=== PATIENT | male | born 1955 | race Caucasian/White ===

== ENCOUNTER → 2018-06-29 14:14 | Outpatient (CLI) | payer BC, SELFPAY ==
[2018-06-29 14:18] LABS: Microscopic, Urine URINE MICROSCOPIC (MICROSCOPIC)
[2018-06-29 14:39] LABS: Basophils # 0.1 K/mm3 (0-0.2); Basophils % 0.6 % (0.1-2.0); Eosinophils # 0.2 K/mm3 (0.0-0.4); Eosinophils % 1.9 % (0.1-12.0); Hematocrit 42.9 % (42.0-52.0); Hemoglobin 14.6 g/dL (14.1-18.0); Lymphocytes # 2.9 K/mm3 (0.7-4.5); Lymphocytes % 33.4 % (10-50); Mean Corpuscular HGB Conc 33.9 g/dL (31.8-35.4); Mean Corpuscular Hemoglobin 33.1 pg (27.0-31.2); Mean Corpuscular Volume 97.5 fl (80-94); Mean Platelet Volume 7.4 fl (7.4-10.4); Monocytes # 0.3 K/mm3 (0.1-1.0); Monocytes % 3.3 % (1.7-9.3); Neutrophils # 5.2 K/mm3 (1.8-7.8); Neutrophils % 60.7 % (37.0-80.0); Platelet Count 240 K/mm3 (142-424); Red Cell Distribution Width 13.4 % (11.5-17.5); White Blood Count 8.6 K/mm3 (4.8-10.8)
[2018-06-29 15:05] LABS: Appearance,Urine CLEAR (Clear); Bilirubin,Urine Negative (Negative); Blood, Urine 1+ (Negative); Color,Urine YELLOW (Yellow); Glucose,Urine (UA) Negative (Negative); Ketones,Urine Negative (Negative); Leukocyte Esterase,Urine Negative (Negative); Nitrate,Urine Negative (Negative); PH,Urine 5.5 (5.0-8.5); Protein,Urine Negative (Negative); Specific Gravity, Urine >= 1.030 (1.005-1.030); Urobilinogen,Urine 0.2 EU/dl (0.2)
[2018-06-29 15:15] LABS: Bacteria,Urine Trace /lpf; Mucus,Urine 3+ /lpf; WBC,Urine Occasional #/hpf (0-3)
[2018-06-29 15:34] LABS: Anion Gap 15.8 mEq/L (5-15); Blood Urea Nitrogen 10 mg/dL (7-18); Calcium 8.8 mg/dL (8.5-10.1); Carbon Dioxide 23 mmol/L (21.0-32.0); Chloride 104 mmol/L (98-107); Creatinine,Serum 1.05 mg/dL (0.70-1.30); Estimated Glomerular Filt Rate 71 ml/min (>60); GFR (African American) 86 ML/MIN (>60); Glucose 133 mg/dL (74-106); Potassium 3.8 mmoL/L (3.5-5.1); Sodium 139 mmol/L (136-145)
== END ==
PROVIDERS: Visit Provider Surgery
DX: K40.90 Unilateral inguinal hernia, without obstruction or gangrene, not specified as recurrent (principal)
CPT/HCPCS: 36415; 80048; 81001; 85025; 93005

== ENCOUNTER → 2018-12-10 15:18 | Outpatient (CLI) | payer BC, SELFPAY ==
--- NOTE | 2018-12-10 15:22 | CT_ITS ---
PROCEDURE: CT LUNG SCREENING CLINICAL INDICATION: H/O NICOTINE DEPENDENCE Forty pack-year smoking history, asymptomatic for lung cancer COMPARISON: CHW CT CHEST W/ CONTRAST from 09/20/2012 TECHNIQUE: The exam was performed on a GE Light Speed [address] scanner using 2.90 mGy CTDI. A low dose helical CT CHEST was performed on a multi-detector scanner. All CT scans at the facility use one or more dose reduction, viz: automated exposure control, ma/kV adjustment per patient size (including targeted exams where dose is matched to indication, i.e. head), or iterative reconstruction technique. The LDCT was performed in a facility that meets the criteria for the screening program. Data regarding this exam was submitted to ACR which is an approved registry. The order for this exam indicates that it came as a result of a lung cancer screening counseling shard decision-making visit that included all the elements required of such a visit including smoking cessation. The radiologist interpreting this exam meets the CMS criteria for the LDCT lung cancer screening program. The exam is reported using the Lung-RADS classification scale and reported to the ACR registry. NOTE: This study was performed for the specific purposes of lung cancer screening and is not an alternative to diagnostic chest CT. RADIATION DOSE: CTDI vol(CT dose Index-volume) = 2.90mG DLP (Dose Length Product) = 114.38 mGcm FINDINGS: There are severe centrilobular and paraseptal emphysematous changes in the apices greater on the right compared to the left side. These findings have progressed since the previous exam. No suspicious pulmonary nodules are evident. There is a small nodular opacity along posterior aspect of the trachea on the right which has developed since the previous exam but does contain some calcification suggesting a small partially calcified nodule or lymph node. The OTHER FINDINGS: No other pertinent findings evident. IMPRESSION: Lung rads category 2 benign findings. Severe centrilobular and paraseptal emphysematous changes which has progressed since the previous exam Recommend follow-up screening LD CT in 1 year Dictated by: Wally Ogden MD 12/10/2018 15:54 Electronically signed by Wally Ogden MD in [place] 12/10/2018 15:54
== END ==
PROVIDERS: PCP Internal Medicine Adolescent Medicine; Visit Provider Internal Medicine Adolescent Medicine
DX: Z87.891 Personal history of nicotine dependence (principal); Z12.2 Encounter for screening for malignant neoplasm of respiratory organs

== ENCOUNTER → 2019-07-28 11:10 | Outpatient (CLI) | payer BC, SELFPAY ==
--- NOTE | 2019-07-28 11:20 | CT_ITS ---
PROCEDURE: CT ABDOMEN PELVIS WO CON CLINICAL INDICATION: HEMATURIA Painless hematuria COMPARISON: No exams were available for comparison TECHNIQUE: Axial images obtained with sagittal and coronal reformats. All CT scans at the facility use one or more dose reduction, viz: automated exposure control, ma/kV adjustment per patient size (including targeted exams where dose is matched to indication, i.e. head), or iterative reconstruction technique. FINDINGS: LOWER THORAX: No acute finding ABDOMEN & PELVIS: The there is a 1 cm hypodensity in the right hepatic lobe posteriorly segment 7 nonspecific. The spleen, adrenal glands, and pancreas show no acute finding. There is a small calcific density in the uncinate process of the pancreas and 1 in the tail the pancreas. There is a small hiatal hernia. Gallbladder has an unremarkable appearance. No renal or ureteral calculi are evident. There is a 2.6 cm hypodensity in the right kidney posteriorly and inferiorly which may represent a renal cyst and may be confirmed with ultrasound. No hydronephrosis. No intestinal obstruction or free air. There is some thickening of the terminal ileum as well as the ascending and transverse colon with fatty infiltration of the mucosa which may be seen with inflammatory bowel disease. There is diverticulosis of the descending and sigmoid colon. No evidence of diverticulitis. No evidence of appendicitis. There is increased soft tissue density in the right inguinal region which may be due to prior surgery No acute bony anomaly. IMPRESSION: 1. Hypodense lesion of the right kidney at 2.6 cm likely related to a renal cyst. Suggest ultrasound to confirm cystic nature. 2. Fatty infiltration the wall of the terminal ileum as well as the cecum, ascending colon, and proximal transverse colon. This is a nonspecific finding but can be seen with types inflammatory bowel disease 3. Colonic diverticulosis. No evidence of diverticulitis. Dictated by: Wally Ogden MD 07/29/2019 08:40 Electronically signed by Wally Ogden MD in [place] 07/29/2019 08:40
== END ==
PROVIDERS: PCP Internal Medicine Adolescent Medicine; Visit Provider Internal Medicine Adolescent Medicine
DX: R31.9 Hematuria, unspecified (principal)
CPT/HCPCS: 74176

== ENCOUNTER → 2019-08-10 10:29 | Outpatient (CLI) | payer BC, SELFPAY ==
[2019-08-10 12:14] LABS: Coronavirus 19 IgG Antibody Negative (Negative); Coronavirus 19 IgM Antibody Negative (Negative)
== END ==
PROVIDERS: Visit Provider Urology
DX: Z01.818 Encounter for other preprocedural examination (principal); R30.0 Dysuria
CPT/HCPCS: 36415; 86328

== ENCOUNTER 2019-08-11 13:17 | Day surgery (SDC) | payer BC, SELFPAY ==
--- NOTE | 2019-08-09 09:33 | SUR.PREOP ---
08/09/2019 @ 930--PHONE CALL MADE TO PATIENT. PATIENT UNDERSTANDS THAT LAB WORK AND COVID TESTING NEEDS TO BE COMPLETED @ 10 ON 08/10/2019. PATIENT UNDERSTANDS IF LAB WORK AND COVID-19 TESTS ARE NOT COMPLETED BY 12PM ON THAT DATE, THE SURGERY SCHEDULED WILL BE CANCELLED AND RESCHEDULED FOR ANOTHER TIME.
[2019-08-10 11:34] VITALS: BMI 30.4
[2019-08-11 13:31] VITALS: BP 154/93; PULSE 81; RESP 18; TEMP 36.3; O2SAT 96
[2019-08-11 14:10] VITALS: BP 173/92; PULSE 79; RESP 18; TEMP 36.2; O2SAT 95
--- NOTE | 2019-08-11 16:23 | HMH.OPNOTE ---
Date of procedure: 08/11/19 Pre-op Diagnosis:: Gross hematuria Post-op Diagnosis:: Bladder tumor Procedure performed:: Cystoscopy, flexible Surgeon:: Aleks Chicas MD Anesthesia: local Estimated blood loss (mL): 0 Clinical Note:: 64-year-old white male with a recent gross hematuria presents for cystoscopic evaluation. Operative findings:: 2 cm bladder tumor noted above the left ureteral orifice. Operative note:: Patient taken to the operating room after informed consent was obtained. On the stretcher he was prepped and draped in the standard surgical fashion and 2% lidocaine placed into the urethra and clamped for 5 minutes. The flexible cystoscope introduced into the urethral meatus and passed to the prostatic urethra which showed no evidence of any bleeding. There was moderate hyperplasia present. The bladder was entered and examined in a systematic fashion. There was a 2 cm superficial appearing, papillary tumor noted above the left ureteral orifice. No other abnormalities were noted. The scope was retroflexed showing a small median lobe. Scope removed the patient tolerated the procedure well there are no complications. We discussed the findings today and we discussed that TURBT is our next step in treating the bladder tumor. Condition: stable Disposition: same day Specimens:: None Complications:: None
== END 2019-08-11 14:20 | disposition home or self-care (01) ==
LOC: OUTP 13:19
PROVIDERS: PCP Internal Medicine Adolescent Medicine; Visit Provider Urology
PROC: (CPT 52000; principal; 2019-08-11 14:00)
DX: D49.4 Neoplasm of unspecified behavior of bladder; E78.5 Hyperlipidemia, unspecified; Z79.82 Long term (current) use of aspirin; Z79.51 Long term (current) use of inhaled steroids; Z83.3 Family history of diabetes mellitus; Z83.438 Family history of other disorder of lipoprotein metabolism and other lipidemia; Z84.1 Family history of disorders of kidney and ureter; Z80.9 Family history of malignant neoplasm, unspecified; Z72.0 Tobacco use
CPT/HCPCS: 52000

== ENCOUNTER → 2019-08-18 09:44 | Outpatient (CLI) | payer BC, SELFPAY ==
[2019-08-18 14:10] LABS: Coronavirus 19 IgG Antibody Negative (Negative); Coronavirus 19 IgM Antibody Negative (Negative)
== END ==
PROVIDERS: Visit Provider Urology
DX: Z01.818 Encounter for other preprocedural examination (principal)
CPT/HCPCS: 36415; 86328

== ENCOUNTER 2019-08-19 09:12 | Day surgery (SDC) | payer BC, SELFPAY ==
--- NOTE | 2019-08-17 10:07 | SUR.PREOP ---
08/17/2019 @ 1000--PHONE CALL MADE TO PATIENT. PATIENT UNDERSTANDS THAT LAB WORK AND COVID TESTING NEEDS TO BE COMPLETED @ 0930 ON 08/18/2019. PATIENT UNDERSTANDS IF LAB WORK AND COVID-19 TESTS ARE NOT COMPLETED BY 12PM ON THAT DATE, THE SURGERY SCHEDULED WILL BE CANCELLED AND RESCHEDULED FOR ANOTHER TIME.
[2019-08-19] VITALS (16 sets, daily range): BP systolic 131–187; BP diastolic 74–113; PULSE 58–72; RESP 12–20; TEMP 36.5–43; O2SAT 94–96; BMI 28.8
[2019-08-19 10:29] LABS: Basophils # 0.1 K/mm3 (0-0.2); Eosinophils # 0.2 K/mm3 (0.0-0.4); Eosinophils % 2.4 % (0.1-12.0); Hematocrit 46.3 % (42.0-52.0); Hemoglobin 15.2 g/dL (14.1-18.0); Lymphocytes # 2.1 K/mm3 (0.7-4.5); Lymphocytes % 24.6 % (10-50); Mean Corpuscular HGB Conc 32.9 g/dL (31.8-35.4); Mean Corpuscular Hemoglobin 33.8 pg (27.0-31.2); Mean Corpuscular Volume 102.7 fl (80-94); Mean Platelet Volume 9.6 fl (7.4-10.4); Monocytes # 0.2 K/mm3 (0.1-1.0); Monocytes % 2.7 % (1.7-9.3); Neutrophils # 5.8 K/mm3 (1.8-7.8); Neutrophils % 69.3 % (37.0-80.0); Platelet Count 280 K/mm3 (142-424); Red Blood Count 4.51 M/mm3 (4.60-6.20); Red Cell Distribution Width 13.1 % (11.5-17.5); White Blood Count 8.4 K/mm3 (4.8-10.8)
[2019-08-19 10:31] LABS: Chloride 105 mmol/L (98-107); Potassium 4.4 mmoL/L (3.5-5.1); Sodium 139 mmol/L (136-145)
[2019-08-19 10:34] LABS: Blood Urea Nitrogen 12 mg/dl (9-20); Carbon Dioxide 24 mmol/L (22.0-30.0); Creatinine Clearance Estimated 105 mL/min (50-200); Estimated Glomerular Filt Rate 84 ml/min (>60); GFR (African American) 102 ML/MIN (>60); Glucose 112 mg/dl (74-100)
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
--- NOTE | 2019-08-19 13:41 | FL_ITS ---
PROCEDURE: FL CYSTOGRAM NON-VOIDING CLINICAL INDICATION: STENT PLACEMENT IN OR S/P TURBP COMPARISON: No exams were available for comparison FINDINGS: Fluoroscopy time: 65 seconds Two images submitted shows a right ureteral stent in place with the proximal aspect in the region of the renal pelvis and distal aspect in the region of the urinary bladder. IMPRESSION: Status post right stent placement with fluoroscopic guidance Dictated by: Wally Ogden MD 08/19/2019 17:07 Electronically signed by Wally Ogden MD in [place] 08/19/2019 17:07
--- NOTE | 2019-08-19 13:45 | HMH.ANESI ---
[facility] Anesthesia Record Part I Intake, IV Amount: 1,340 Estimated blood loss (mL): 0 Urine output (mL): 0 Blood Pressure: 135/77 SaO2: 94 Pulse Rate: 72 Respiratory Rate: 12 Temperature: 97.7 F Patient is:: Awake, Stable Stable to PACU at:: 13:40
--- NOTE | 2019-08-19 14:22 | PC.NURSE ---
1408-medicated per MAR for bladder pressure/urge to void w/Dilaudid 0.5mg IVP, bp remains elevated, will continue to monitor, otherwise vss 1418-ENRIQUE Dominguez at bedside, pt's BP remains elevated after being medicated for pain, pt reports pressure is easing a little, pt attempted to void at bedside w/assistance of ANI Garcia and ENRIQUE Dominguez-pt unable to void per urinal, assisted pt back to bed, will continue to monitor 1420-pt's bp remains elevated at 156/113-ENRIQUE Dominguez ordered to give Labetolol 10mg IVP xonce, will continue to monitor
--- NOTE | 2019-08-19 14:34 | PC.NURSE ---
1428-pt reports pain is easing a little, sitting up in bed drinking apple juice and ice chips w/out difficulty, pt's bp improving w/Labetolol, vss, detailed report called to Yovany,RNpt stable 1431-pt transported to post op via stretcher w/[place] rails up, vss, pt stable
--- NOTE | 2019-08-19 15:17 | SUR.PHASEII ---
Pt been in bathroom for close to 30 minutes trying to [address] Dr[address] Chicas notified per Paulina Rahman RN and said to put in Murray with 10cc balloon. Waiting for Pt to come out of BR.
--- NOTE | 2019-08-19 16:58 | P.PN_ITS ---
[facility] Anesthesia Record Part II Discharge Time: 14:30 Destination: Surgical Day Care (OP Surgery) PACU nurse assessment reviewed?: Yes Patient Condition:: Good Anesthesia Complications:: None Swallowing reflex intact?: Yes Cyanosis?: No Blood Pressure: 149/97 Pulse Rate: 66 Temperature: 97.8 F Mental Status: Alert & Oriented Pain level:: 3 Nausea and/or vomitting:: None Intake, IV Amount: 0
--- NOTE | 2019-08-19 18:39 | HMH.OPNOTE ---
Date of procedure: 08/19/19 Pre-op Diagnosis:: 2 cm bladder tumor Post-op Diagnosis:: 2 cm bladder tumor and distal ureteral extension of tumor Procedure performed:: TURBT of 2 cm bladder tumor, left ureteroscopy with ureteral biopsy and laser fulguration of ureteral tumor Surgeon:: Aleks Chicas MD HEAD SETTER:: Honorio Cruz Anesthesia: GETA Estimated blood loss (mL): 5 Clinical Note:: 64-year-old white male with history of gross hematuria noted to have a 2 cm bladder tumor on recent cystoscopy. After resection of the bladder tumor today he was noted to be extending into the distal ureter. Ureteroscopy showed no evidence of more proximal tumor. Ureteral biopsy and laser fulguration of the tumor with stent placement performed Operative findings:: 2 cm bladder tumor with calcifications, bladder tumor extended into the distal left ureter. Operative note:: Patient taken to the operating room after informed consent was obtained. Was placed on the operating table in the supine position and general anesthesia administered. Preoperative antibiotics administered. He was then placed into the dorsal lithotomy position and prepped and draped in the standard surgical fashion. 22 Salvadorean cystoscope passed into the urethra and into the bladder without difficulty. Again of note was a 2 cm bladder tumor noted over the left trigone. The left ureteral orifice was not visible underneath the tumor. The tumor was noted to have some calcifications peripherally. The cystoscope removed and our 26 Salvadorean resectoscope sheath passed into the urethra with use of the obturator. The obturator then removed and the resectoscope passed through the sheath and the tumor resected down to the base. The tumor appeared to be coming right from the ureteral orifice and ureteral orifice was resected with the base of the tumor. The bladder tumor was then irrigated out and sent off as a specimen. Superficial and deep specimens were sent. The cystoscope then removed and our semirigid ureteroscope passed into the bladder and into the left ureter. There was papillary finding right at the distal ureter but not more proximally. The scope was passed up to the proximal ureter and no other suspicious findings were noted. The ureteroscope was removed and the cystoscope was replaced and biopsy forceps were used to biopsy the papillary tissue from the distal ureter. This was sent off as a specimen. Cystoscope then removed and the ureteroscope was replaced and passed into the left ureter. The 200 nm laser fiber passed through the ureteroscope and with the settings at 20 W the papillary tumor at the distal ureter was fulgurated. All visible tumor was treated. We then removed the laser and a guidewire then used to pass into the ureter and up into the renal pelvis. We did have a little trouble finding the true lumen after the fulguration but under fluoroscopy we were able to verify that we were in the correct position by injecting some contrast through the ureteral catheter and then replacing the guidewire. A 6 x 26 Salvadorean stent was then passed over the guidewire and the guidewire removed. The string was removed as well. The ureteral tumor was sent off as a separate specimen. The bladder drained and the scope removed. Patient tolerated procedure well. Condition: stable Disposition: PACU Specimens:: Superficial and deep bladder specimens. Ureteral biopsy is a separate specimen Complications:: None
== END 2019-08-19 16:26 | disposition home or self-care (01) ==
LOC: OR 09:13
PROVIDERS: PCP Internal Medicine Adolescent Medicine; Visit Provider Urology
PROC: 0TBB8ZZ Excision of Bladder, Via Natural or Artificial Opening Endoscopic (ICD-10-PCS; CPT 52500; principal; 2019-08-19 10:30)
DX: D30.3 Benign neoplasm of bladder (principal); D09.19 Carcinoma in situ of other urinary organs; Z79.82 Long term (current) use of aspirin; Z79.899 Other long term (current) drug therapy; E78.5 Hyperlipidemia, unspecified; Z87.19 Personal history of other diseases of the digestive system; Z72.0 Tobacco use; Z82.49 Family history of ischemic heart disease and other diseases of the circulatory system; Z83.438 Family history of other disorder of lipoprotein metabolism and other lipidemia; Z80.9 Family history of malignant neoplasm, unspecified
CPT/HCPCS: 52500; 52234; 74430; 80048; 85025; 96374; C1769; C2617; J2405; J2710

== ENCOUNTER → 2019-08-22 10:09 | Outpatient (CLI) | payer BC, SELFPAY ==
--- NOTE | 2019-08-22 10:18 | XR_ITS ---
PROCEDURE: XR KUB CLINICAL INDICATION: stent placement Follow-up stent placement COMPARISON: CT ABDOMEN PELVIS WO CON from 07/28/2019 FL CYSTOGRAM NON-VOIDING from 08/19/2019 FINDINGS: Left ureteral stent is present in satisfactory position with the proximal aspect overlying the region of the left renal pelvis and distal aspect overlying urinary bladder. There are multiple pelvic calcifications consistent with phleboliths. IMPRESSION: Left ureteral stent in place. Dictated by: Wally Ogden MD 08/22/2019 11:04 Electronically signed by Wally Ogden MD in [place] 08/22/2019 11:04
== END ==
PROVIDERS: PCP Internal Medicine Adolescent Medicine; Visit Provider Urology
DX: Z96.0 Presence of urogenital implants (principal)
CPT/HCPCS: 74018

== ENCOUNTER → 2019-10-21 14:46 | Outpatient (CLI) | payer BC, SELFPAY ==
[2019-10-21 17:08] LABS: Coronavirus 19 IgG Antibody Negative (Negative); Coronavirus 19 IgM Antibody Negative (Negative)
== END ==
PROVIDERS: Visit Provider Urology
DX: Z01.818 Encounter for other preprocedural examination (principal)
CPT/HCPCS: 36415; 86328

== ENCOUNTER 2019-10-24 07:29 | Day surgery (SDC) | payer BC, SELFPAY ==
[2019-10-20 10:41] VITALS: BMI 28.8
[2019-10-24] VITALS (13 sets, daily range): BP systolic 118–168; BP diastolic 77–92; PULSE 56–75; RESP 12–18; TEMP 36.2–43; O2SAT 90–96
--- NOTE | 2019-10-24 09:22 | HMH.ANESCL ---
[facility] Anesthesia Checklist - Patient Identification Patient Identification: Arm Band, Verbal (Name & ) - Structural Data Admitted From: Home Planned Operative Procedure/s: Cystoscopy, ureteroscopy Consent for Planned Operative Procedure(s) Verified: Yes Verified Documents: Surgical Consent, History and Physical - NPO Status Verified Time NPO: 00:00 - Chart Verification Results Verified: CBC, BMP, UA - Additional verifications Anesthesia Reactions: No Hx Blood Transfusions: No Blood Transfusion Reaction: No - Airway Assessment C-Spine Mobility Assessed: Yes TMJ Mobility Assessed: Yes Dentition: Good Dentition (Bridges) - Neurological Assessment Level of Consciousness: Awake, Alert, Appropriate, Follows Commands Hx Seizures: No Numbness or tingling in extremities: No - Anesthesia Plan Anesthesia Risk discussed: Yes Anesthesia Plan: Verified ASA Class: III Anesthesia Type: General [facility] History I have reviewed the patient's past medical history: Yes Medical History: Reports:: Chronic Obstructive Pulmonary Disease (COPD), Hyperlipidemia Denies:: Cancer, Diabetes Mellitus Type 1, Diabetes Mellitus Type 2, Internal Pacemaker, MRSA, Seizures *Have you ever received a pneumonia vaccine?: Yes *Have you received a flu vaccine this season?: Yes Other Medical History: Denies: Blood Transfusion Reaction Anesthesia experience/problems:: No prior complications Laterality Cases: Bilateral: Other Other Surgeries: Yes: Cancer Surgery, Colonoscopy, Hernia Repair, Other. No: Pacemaker Amputation: No Fractures: Yes (jaw) - *Social History Last grade of school completed: Advanced degree Smoking Status: Former smoker Tobacco Type: cigarettes # Packs/Day (cigarettes): 1 #Yrs smoked (if former smoker): 40 Alcohol Intake: never Substance Use Type: denies use *Occupational Status:: employed Housing: house Household Members: spouse *Travel in the last 8 weeks: None Family Hx:: Cancer, Coronary Artery Disease, Kidney Disease
--- NOTE | 2019-10-24 10:31 | P.PN_ITS ---
[facility] Anesthesia Record Part I Intake, IV Amount: 1,200 Estimated blood loss (mL): 0 Urine output (mL): 0 Blood Pressure: 149/86 SaO2: 92 Pulse Rate: 60 Respiratory Rate: 12 Temperature: 97.9 F Patient is:: Awake, Stable Stable to PACU at:: 10:30
--- NOTE | 2019-10-24 11:42 | PC.NURSE ---
Addendum entered by Joey Cardoso RN 10/24/19 11:43: Original Note: Pt voided a moderate amt of clear urine
--- NOTE | 2019-10-24 16:30 | HMH.ANESII ---
[facility] Anesthesia Record Part II Discharge Time: 11:03 Destination: Surgical Day Care (OP Surgery) PACU nurse assessment reviewed?: Yes Patient Condition:: Good Anesthesia Complications:: None Swallowing reflex intact?: Yes Cyanosis?: No Blood Pressure: 147/91 Pulse Rate: 66 Temperature: 97.9 F Mental Status: Alert & Oriented Pain level:: 0 Nausea and/or vomitting:: None Intake, IV Amount: 0
--- NOTE | 2019-10-24 16:51 | HMH.OPNOTE ---
Date of procedure: 10/24/19 Pre-op Diagnosis:: History of bladder cancer and distal ureteral tumor Post-op Diagnosis:: No recurrent tumor noted. Procedure performed:: Cystoscopy with left ureteroscopy Surgeon:: Aleks Chicas MD CAR STEREO INSTALLER:: Vikash Lundberg Anesthesia: GETA Estimated blood loss (mL): 0 Clinical Note:: 64-year-old white male returns for surveillance cystoscopy and left ureteroscopy. Operative findings:: No evidence of recurrent tumor in the bladder or in the left ureter or renal pelvis. Operative note:: Patient taken to the operating room after informed consent was obtained. He was placed on the operating table in the supine position and general anesthesia administered. Preoperative antibiotics and sequential compression devices placed. He was then placed into the dorsal lithotomy position prepped draped in the standard surgical fashion. 22 Gabo passed into the urethra and passed into the bladder without difficulty. The bladder was examined in a systematic fashion. There is no evidence of recurrent bladder tumor. The ureteral orifices in their normal anatomic position and clear eflux of urine noted from each. The left ureteral orifice was a little narrower than normal and a guidewire was passed through the left ureteral orifice into the renal pelvis. A flexible ureteroscope was then passed over the guidewire and the guidewire removed. The ureteroscope was passed up into the renal pelvis and each of the calyces were examined and there is no evidence of any tumor. The ureter was examined in its entirety on the way out and there is no evidence of any recurrent tumor including the distal ureter. The scope removed and the patient tolerated the procedure well. He was discharged to recovery in stable condition. Condition: stable Disposition: PACU Specimens:: None Complications:: None
== END 2019-10-24 11:43 | disposition home or self-care (01) ==
LOC: OR 07:30
PROVIDERS: PCP Internal Medicine Adolescent Medicine; Visit Provider Urology
PROC: 0TJ98ZZ Inspection of Ureter, Via Natural or Artificial Opening Endoscopic (ICD-10-PCS; CPT 52351; principal; 2019-10-24 09:00)
DX: Z08 Encounter for follow-up examination after completed treatment for malignant neoplasm (principal); Z85.51 Personal history of malignant neoplasm of bladder; Z87.448 Personal history of other diseases of urinary system; J44.9 Chronic obstructive pulmonary disease, unspecified; E78.5 Hyperlipidemia, unspecified; Z87.891 Personal history of nicotine dependence; Z80.9 Family history of malignant neoplasm, unspecified; Z84.1 Family history of disorders of kidney and ureter; Z82.49 Family history of ischemic heart disease and other diseases of the circulatory system; Z79.899 Other long term (current) drug therapy
CPT/HCPCS: 52351; 96374

== ENCOUNTER → 2019-12-10 09:10 | Outpatient (CLI) | payer BC, SELFPAY ==
[2019-12-10 10:24] LABS: Coronavirus 19 IgG Antibody Negative (Negative); Coronavirus 19 IgM Antibody Negative (Negative)
== END ==
PROVIDERS: Visit Provider Internal Medicine Gastroenterology
DX: Z01.89 Encounter for other specified special examinations (principal); Z12.11 Encounter for screening for malignant neoplasm of colon
CPT/HCPCS: 36415; 86328

== ENCOUNTER 2019-12-12 13:26 | Day surgery (SDC) | payer BC, SELFPAY ==
[2019-12-06 14:37] VITALS: BMI 28.8
[2019-12-12] VITALS (7 sets, daily range): BP systolic 130–168; BP diastolic 70–100; PULSE 59–69; RESP 18; TEMP 36.7; O2SAT 94–99
--- NOTE | 2019-12-12 15:54 | HMH.ANESCL ---
[facility] Anesthesia Checklist - Structural Data Admitted From: Home Planned Operative Procedure/s: colonoscopy Consent for Planned Operative Procedure(s) Verified: Yes - Additional verifications Anesthesia Reactions: No Hx Blood Transfusions: No Blood Transfusion Reaction: No - Airway Assessment C-Spine Mobility Assessed: Yes TMJ Mobility Assessed: Yes Dentition: Good Dentition - Neurological Assessment Level of Consciousness: Awake, Alert, Appropriate - Anesthesia Plan Anesthesia Risk discussed: Yes Anesthesia Plan: Verified ASA Class: II Anesthesia Type: MAC [facility] History I have reviewed the patient's past medical history: Yes Medical History: Reports:: Chronic Obstructive Pulmonary Disease (COPD), Hyperlipidemia, Hypertension Denies:: Cancer, Diabetes Mellitus Type 1, Diabetes Mellitus Type 2, Internal Pacemaker, MRSA, Seizures *Have you ever received a pneumonia vaccine?: Yes *Have you received a flu vaccine this season?: Yes Other Medical History: Denies: Blood Transfusion Reaction Anesthesia experience/problems:: none Laterality Cases: Bilateral: Other Other Surgeries: Yes: No Previous Surgery, Cancer Surgery, Colonoscopy, Hernia Repair, Other. No: Pacemaker Amputation: No Fractures: Yes (jaw) - *Social History Last grade of school completed: Advanced degree Smoking Status: Former smoker Tobacco Type: cigarettes # Packs/Day (cigarettes): 1 #Yrs smoked (if former smoker): 40 Alcohol Intake: never Substance Use Type: denies use *Occupational Status:: employed Housing: house Household Members: spouse *Travel in the last 8 weeks: None Family Hx:: Cancer, Coronary Artery Disease, Kidney Disease
--- NOTE | 2019-12-12 16:02 | HMH.PROC ---
[facility] Procedure Note Procedure Note:: Colonoscopy Procedure Report: Colonoscopy with cold snare polypectomy Endoscopist: Sacha Rodriguez II, MD Referring physician: Wayne Vazquez M.D. Date of Procedure: December 12, 2019 Equipment: Olympus 180 variable stiffness pediatric colonoscope Sedation: MAC sedation Indication: Mr. Hdz is a 64-year-old gentleman who has had advanced adenomatous polyps (11 tubular adenomas removed in October 2015). He has had prior hemorrhoidectomy in 1992. His father had colon polyps. His last colonoscopy with ga was in January 2017 and he had 7 polyps (tubular adenomas x7) which were removed. The patient reports no abdominal pain, weight loss, change in his bowel habits or family history of colon cancer. Procedure: Prior to the procedure, a history and physical exam was performed, and patient's medications and allergies were reviewed. The risks, benefits and alternatives of the sedation and procedure were discussed with the patient. All questions were answered and informed consent was obtained. The patient was brought to the procedure room. Patient identification and proposed procedure were verified by the physician and the nurse. The patient was placed in a left lateral decubitus position and the scope was passed under direct vision. Throughout the procedure, the patient's blood pressure, pulse, and oxygen saturations were monitored continuously. The colonoscopy was accomplished without difficulty. The patient tolerated the procedure well. Findings: On digital rectal examination there was normal rectal tone. There were no external hemorrhoids. The prostate was 2+, mildly firm but symmetric without nodules. The colonoscope was introduced through the anal canal to the rectum and advanced to the cecum. The ileocecal valve and appendiceal orifice were identified. The scope was advanced a short distance into the ileum which appeared grossly normal. The scope was then withdrawn into the colon. There were a total of 3 colon polyps (cecum x2 (3 and 6 mm) and ascending x1 (5 mm)) which were removed via cold snare polypectomy. There were a few scattered diverticuli throughout the descending and sigmoid colon (LEFT colon). The rectum itself was normal. Upon retroflexion within the rectum there were grade 1-2 internal hemorrhoids. There was evidence of fibrosis from prior hemorrhoidectomy. The preparation was excellent throughout with Iota Preparation Score of 9. The cecal time was 12 minutes. Impression: 1. Diminutive colon polyps x3 2. Mild left-sided diverticulosis 3. Grade 1-2 internal hemorrhoids Plan: I will follow-up the polyp histology and recommend repeat screening/surveillance colonoscopy again in 3 to 5 years based upon the pathology. I would encourage bulk fiber supplementation on a maintenance basis.
== END 2019-12-12 16:50 | disposition home or self-care (01) ==
LOC: OUTP 13:28
PROVIDERS: PCP Internal Medicine Adolescent Medicine; Visit Provider Internal Medicine Gastroenterology
PROC: 0DJD8ZZ Inspection of Lower Intestinal Tract, Via Natural or Artificial Opening Endoscopic (ICD-10-PCS; CPT 45378; principal; 2019-12-12 14:30)
DX: Z12.11 Encounter for screening for malignant neoplasm of colon (principal); K63.5 Polyp of colon; K57.30 Diverticulosis of large intestine without perforation or abscess without bleeding; K64.0 First degree hemorrhoids; Z86.010 Personal history of colon polyps; Z83.71 Family history of colonic polyps; I10 Essential (primary) hypertension; E78.5 Hyperlipidemia, unspecified; J44.9 Chronic obstructive pulmonary disease, unspecified; Z87.891 Personal history of nicotine dependence; Z80.9 Family history of malignant neoplasm, unspecified; Z82.49 Family history of ischemic heart disease and other diseases of the circulatory system; Z84.1 Family history of disorders of kidney and ureter; Z84.89 Family history of other specified conditions
CPT/HCPCS: 45385

== ENCOUNTER → 2020-02-07 09:56 | Outpatient (POV) | payer BC, SELFPAY | PROVIDERS: Visit Provider Dermatology | DX: Z00.00 Encounter for general adult medical examination without abnormal findings (principal) ==

== ENCOUNTER → 2020-02-18 10:00 | Outpatient (CLI) | payer BC, SELFPAY ==
[2020-02-18 10:22] LABS: Basophils # 0.1 K/mm3 (0-0.2); Eosinophils # 0.2 K/mm3 (0.0-0.4); Eosinophils % 2.4 % (0.1-12.0); Hematocrit 47.7 % (42.0-52.0); Hemoglobin 15.6 g/dL (14.1-18.0); Lymphocytes # 2.6 K/mm3 (0.7-4.5); Lymphocytes % 31.4 % (10-50); Mean Corpuscular HGB Conc 32.7 g/dL (31.8-35.4); Mean Corpuscular Hemoglobin 32.8 pg (27.0-31.2); Mean Corpuscular Volume 100.1 fl (80-94); Mean Platelet Volume 8.3 fl (7.4-10.4); Monocytes # 0.5 K/mm3 (0.1-1.0); Monocytes % 5.8 % (1.7-9.3); Neutrophils % 59.4 % (37.0-80.0); Platelet Count 268 K/mm3 (142-424); Red Blood Count 4.77 M/mm3 (4.60-6.20); Red Cell Distribution Width 14.2 % (11.5-17.5); White Blood Count 8.4 K/mm3 (4.8-10.8)
[2020-02-18 11:33] LABS: Chloride 105 mmol/L (98-107)
[2020-02-18 11:34] LABS: Potassium 4.5 mmoL/L (3.5-5.1); Sodium 138 mmol/L (136-145)
[2020-02-18 11:37] LABS: Anion Gap 11.5 mEq/L (5-15); Blood Urea Nitrogen 11 mg/dl (9-20); Calcium 9.4 mg/dl (8.4-10.2); Carbon Dioxide 26 mmol/L (22.0-30.0); Estimated Glomerular Filt Rate 84 ml/min (>60); GFR (African American) 102 ML/MIN (>60); Glucose 108 mg/dl (74-100)
[2020-02-18 12:45] LABS: Coronavirus 19 IgG Antibody Negative (Negative); Coronavirus 19 IgM Antibody Negative (Negative)
== END ==
PROVIDERS: Visit Provider Urology
DX: C67.9 Malignant neoplasm of bladder, unspecified (principal)
CPT/HCPCS: 36415; 80048; 85025; 86328

== ENCOUNTER 2020-02-20 07:32 | Day surgery (SDC) | payer BC, SELFPAY ==
[2020-02-17 11:13] VITALS: BMI 29.5
[2020-02-20] VITALS (11 sets, daily range): BP systolic 97–148; BP diastolic 59–99; PULSE 68–84; RESP 12–20; TEMP 36.2–36.6; O2SAT 93–95
--- NOTE | 2020-02-20 10:57 | HMH.ANESCL ---
[facility] Anesthesia Checklist - Patient Identification Patient Identification: Arm Band - Structural Data Admitted From: Home Planned Operative Procedure/s: cysoscopy, left ureteroscopy Consent for Planned Operative Procedure(s) Verified: Yes Verified Documents: Surgical Consent, History and Physical - NPO Status Verified Time NPO: 00:00 - Additional verifications Anesthesia Reactions: No Hx Blood Transfusions: No Blood Transfusion Reaction: No - Airway Assessment C-Spine Mobility Assessed: Yes (mp2) TMJ Mobility Assessed: Yes Dentition: Good Dentition - Neurological Assessment Level of Consciousness: Awake, Alert - Anesthesia Plan Anesthesia Risk discussed: Yes Anesthesia Plan: Verified ASA Class: III Anesthesia Type: General [facility] History I have reviewed the patient's past medical history: Yes Medical History: Reports:: Cancer, Chronic Obstructive Pulmonary Disease (COPD) Denies:: Diabetes Mellitus Type 1, Diabetes Mellitus Type 2, Internal Pacemaker, MRSA, Seizures *Have you ever received a pneumonia vaccine?: Yes *Have you received a flu vaccine this season?: Yes Other Medical History: Denies: Blood Transfusion Reaction Anesthesia experience/problems:: nac Laterality Cases: Bilateral: Other Other Surgeries: Yes: Cancer Surgery, Colonoscopy, Hernia Repair, Other. No: Pacemaker Amputation: No Fractures: Yes (jaw) - *Social History Last grade of school completed: Advanced degree Smoking Status: Current some day smoker Tobacco Type: cigarettes # Packs/Day (cigarettes): 1 #Yrs smoked (if former smoker): 40 Alcohol Intake: current Alcohol Intake Frequency:: a few times a month Substance Use Type: denies use *Occupational Status:: employed Housing: house Household Members: spouse *Travel in the last 8 weeks: None Family Hx:: Cancer, Coronary Artery Disease, Kidney Disease
--- NOTE | 2020-02-20 12:17 | P.PN_ITS ---
[facility] Anesthesia Record Part I Intake, IV Amount: 450 Estimated blood loss (mL): 5 Urine output (mL): 0 Blood Products used (#): none Blood Pressure: 145/80 SaO2: 93 Pulse Rate: 80 Respiratory Rate: 20 Temperature: 97.8 F Patient is:: Awake, Stable Stable to PACU at:: 12:16
--- NOTE | 2020-02-20 16:52 | P.OP_ITS ---
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 Returns today for his 3-month surveillance cystoscopy and ureteroscopy. He denies any interval hematuria. He does continue to smoke on occasion but has decreased his smoking significantly by report. Operative findings:: No evidence of recurrent bladder or ureteral tumors. Operative note:: Patient taken to the operating room after informed consent was obtained. He was placed on the operating table in the supine position and general anesthesia administered. Preoperative antibiotic was given. He was then placed into the dorsal lithotomy position and prepped and draped in the standard surgical fashion. A 21 [place]an scope passed into the urethra and easily into the bladder. The bladder was examined in a systematic fashion. There is no evidence of recurrent bladder tumors, mucosal normalities, trabeculation, diverticula or cellule formation. Right ureteral orifice in its normal anatomic position and of normal caliber. Left ureteral orifice was a little higher on the trigone in more oval in shape due to previous resection of the distal orifice. Guidewire was passed into the left ureteral orifice and the cystoscope removed. Flexible ureteroscope was then passed over the guidewire and into the distal ureter. The guidewire was removed and the scope passed proximally into the left renal pelvis. The left renal pelvis was examined in its entirety as well as the calyces. There is no evidence of transitional cell carcinoma. The ureter was examined as the scope was removed and there is no evidence of any transitional cell tumors in the ureter. Scope removed. Patient tolerated procedure well no complications. Urojet was placed into the urethra and he was discharged to the recovery in stable condition. Condition: stable Disposition: PACU Specimens:: None Complications:: None
--- NOTE | 2020-02-20 20:59 | P.PN_ITS ---
[facility] Anesthesia Record Part II Discharge Time: 12:44 Destination: Surgical Day Care (OP Surgery) PACU nurse assessment reviewed?: Yes Patient Condition:: Good Anesthesia Complications:: None Swallowing reflex intact?: Yes Cyanosis?: No Blood Pressure: 113/59 Pulse Rate: 69 Temperature: 97.5 F Mental Status: Alert & Oriented Pain level:: 0 Nausea and/or vomitting:: None Intake, IV Amount: 0
--- NOTE | 2020-02-21 08:04 | P.PN_ITS ---
[facility] Anesthesia Record Part II Discharge Time: 12:46 Destination: Surgical Day Care (OP Surgery) PACU nurse assessment reviewed?: Yes Patient Condition:: Good Anesthesia Complications:: None Swallowing reflex intact?: Yes Cyanosis?: No Blood Pressure: 138/99 Pulse Rate: 84 Temperature: 97.5 F Mental Status: Alert & Oriented Pain level:: 0 Nausea and/or vomitting:: None Intake, IV Amount: 35
[2020-02-21 08:05] VITALS: BP 138/99; PULSE 84; TEMP 36.4
== END 2020-02-20 13:25 | disposition home or self-care (01) ==
LOC: OR 07:33
PROVIDERS: PCP Internal Medicine Adolescent Medicine; Visit Provider Urology
PROC: 0TJB8ZZ Inspection of Bladder, Via Natural or Artificial Opening Endoscopic (ICD-10-PCS; CPT 52000; principal; 2020-02-20 09:00)
DX: Z08 Encounter for follow-up examination after completed treatment for malignant neoplasm (principal); Z85.51 Personal history of malignant neoplasm of bladder; Z85.54 Personal history of malignant neoplasm of ureter; Z90.6 Acquired absence of other parts of urinary tract; J44.9 Chronic obstructive pulmonary disease, unspecified; Z72.0 Tobacco use; I10 Essential (primary) hypertension
CPT/HCPCS: 52351; 96374; J2405

== ENCOUNTER → 2020-02-23 09:09 | Outpatient (CLI) | payer BC, SELFPAY ==
--- NOTE | 2020-02-23 09:12 | XR_ITS ---
PROCEDURE: XR SHOULDER LT MIN 2V CLINICAL INDICATION: Left shoulder pain COMPARISON: No exams were available for comparison FINDINGS: The clavicle is intact. There is minor degenerate change of the AC joint. The humeral head and glenoid appear intact. No soft tissue calcifications IMPRESSION: Minor degenerative changes AC joint otherwise negative left shoulder Dictated by: Dr. Kodak Posada MD 02/23/2020 14:56 Dr. Kodak Posada MD in [place] 02/23/2020 14:56
== END ==
PROVIDERS: PCP Internal Medicine Adolescent Medicine; Visit Provider Orthopaedic Surgery
DX: M25.512 Pain in left shoulder (principal)
CPT/HCPCS: 73030

== ENCOUNTER → 2020-05-26 08:56 | Outpatient (CLI) | payer BC, SELFPAY ==
--- NOTE | 2020-05-26 09:07 | MR_ITS ---
PROCEDURE: MR ANGIO HEAD WO CON CLINICAL INDICATION: RT EYE DROOP Pt states he noticed his right eye drooping a few days ago. COMPARISON: No exams were available for comparison TECHNIQUE: 3D [id number] images are obtained with multi slab reformats. FINDINGS: No aneurysm, AVM, or major intracranial occlusive process evident. 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 No midline shift or hydrocephalus. There is some asymmetry in the occipital horns of the lateral ventricles left more prominent than the right which is of questionable clinical significance. IMPRESSION: No aneurysm AVM or major occlusive process apparent. 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 Dictated by: Wally Ogden MD 05/29/2020 09:42 Wally Ogden MD in [place] 05/29/2020 09:42
== END ==
PROVIDERS: PCP Internal Medicine Adolescent Medicine; Visit Provider Internal Medicine Adolescent Medicine
DX: R29.810 Facial weakness (principal)
CPT/HCPCS: 70544

== ENCOUNTER → 2020-06-22 14:37 | Outpatient (CLI) | payer BC, SELFPAY ==
[2020-06-22 15:55] LABS: Coronavirus 19 IgG Antibody Positive (Negative); Coronavirus 19 IgM Antibody Negative (Negative)
== END ==
PROVIDERS: Visit Provider Urology
DX: Z01.818 Encounter for other preprocedural examination (principal); Z20.822 Contact with and (suspected) exposure to COVID-19; C67.9 Malignant neoplasm of bladder, unspecified
CPT/HCPCS: 36415; 86328

== ENCOUNTER 2020-06-25 07:23 | Day surgery (SDC) | payer BC, SELFPAY ==
[2020-06-25] VITALS (9 sets, daily range): BP systolic 131–178; BP diastolic 76–105; PULSE 62–95; RESP 16–20; TEMP 36.3–37.4; O2SAT 93–97; BMI 29.5
--- NOTE | 2020-06-25 08:32 | HMH.ANESCL ---
[facility] Anesthesia Checklist - Patient Identification Patient Identification: Arm Band - Structural Data Admitted From: Home Planned Operative Procedure/s: Cystoscopy with Left Ureteroscopy Consent for Planned Operative Procedure(s) Verified: Yes Verified Documents: Surgical Consent, History and Physical - NPO Status Verified Time NPO: 00:00 - Additional verifications Anesthesia Reactions: No Hx Blood Transfusions: No Blood Transfusion Reaction: No - Airway Assessment C-Spine Mobility Assessed: Yes (mp2) TMJ Mobility Assessed: Yes Dentition: Good Dentition - Neurological Assessment Level of Consciousness: Awake, Alert - Anesthesia Plan Anesthesia Risk discussed: Yes Anesthesia Plan: Verified ASA Class: III Anesthesia Type: General [facility] History I have reviewed the patient's past medical history: Yes Medical History: Reports:: Cancer (bladder), Chronic Obstructive Pulmonary Disease (COPD), Hyperlipidemia, Hypertension Denies:: Diabetes Mellitus Type 1, Diabetes Mellitus Type 2, Internal Pacemaker, MRSA, Seizures *Have you ever received a pneumonia vaccine?: No *Have you received a flu vaccine this season?: Yes Other Medical History: Denies: Blood Transfusion Reaction Anesthesia experience/problems:: nac Laterality Cases: Bilateral: Other Other Surgeries: Yes: Cancer Surgery, Colonoscopy, Hernia Repair, Other. No: Pacemaker Amputation: No Fractures: Yes (jaw) - *Social History Last grade of school completed: Some college Smoking Status: Current every day smoker Tobacco Type: cigarettes # Packs/Day (cigarettes): 1 #Yrs smoked (if former smoker): 40 Alcohol Intake: never Alcohol Intake Frequency:: a few times a month Substance Use Type: denies use *Occupational Status:: employed Housing: house Household Members: spouse *Travel in the last 8 weeks: None Family Hx:: No significant family history
--- NOTE | 2020-06-25 10:18 | HMH.ANESI ---
[facility] Anesthesia Record Part I Intake, IV Amount: 900 Estimated blood loss (mL): 0 Urine output (mL): 0 Blood Pressure: 178/105 SaO2: 93 Pulse Rate: 95 Respiratory Rate: 16 Temperature: 99.4 F Patient is:: Drowsy, Stable Stable to PACU at:: 10:15
--- NOTE | 2020-06-25 10:29 | P.OP_ITS ---
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 Couple of small polyps noted today. Procedure performed:: Cystoscopy with biopsy x2 and left ureteroscopy Surgeon:: Aleks Chicas MD PROPERTY INSURANCE CLAIMS EXAMINER:: Honorio Cruz Anesthesia: GETA Estimated blood loss (mL): 2 Clinical Note:: Patient is a 65-year-old white male who underwent transurethral resection of bladder tumor over the left trigone and laser fulguration of distal left ureteral tumor in September 2019. He returns today for surveillance cystoscopy and ureteroscopy. He denies any gross hematuria. Operative findings:: Small 1 to 2 mm papillary lesion at the bladder base just to the right of midline as well as a small 1 to 2 mm polypoid lesion at the bladder neck at the 3 o'clock position. Both were biopsied and the underlying tissue fulgurated. Left ureteroscopy within normal limits. Operative note:: Patient taken to the operating room after informed consent was obtained. He was placed on the operating table in the supine position and general anesthesia administered. Preoperative antibiotics and sequential compression devices placed. Was then placed into the dorsal lithotomy position and prepped and draped in the standard surgical fashion. The 22 Gabo passed into the urethra and to the prostatic urethra which showed some moderate hyperplasia. The bladder was entered without difficulty and the bladder examined in a systematic fashion. A small 1 to 2 mm polypoid lesion noted in the bladder base just to the right of midline that is suspicious. Another 1 to 2 mm polypoid lesion at the bladder neck at the 3 o'clock position was noted. The right ureteral orifices normal anatomic position. The left ureteral orifice shows an open configuration and not a flap-like normal configuration due to previous resection and laser fulguration. Clear efflux of urine was noted from each orifice. The a biopsy forceps was then placed onto the cystoscope and the midline lesion was biopsied as well as the lesion at the 3 o'clock position. The Bugbee electrode was used to fulgurate the base of the areas. A little bleeding was noted from the prostatic urethra due to instrumentation and this was fulgurated as well. The cystoscope then removed and the semirigid ureteroscope then placed in the distal ureter was examined and there is no evidence of recurrent tumors. The scope removed patient tolerated procedure well no complications. Condition: stable Disposition: PACU Specimens:: Bladder biopsies Complications:: None
== END 2020-06-25 11:16 | disposition home or self-care (01) ==
LOC: OR 07:25
PROVIDERS: PCP Internal Medicine Adolescent Medicine; Visit Provider Urology
PROC: 0TJB8ZZ Inspection of Bladder, Via Natural or Artificial Opening Endoscopic (ICD-10-PCS; CPT 52000; principal; 2020-06-25 09:00)
DX: D41.4 Neoplasm of uncertain behavior of bladder (principal); Z85.51 Personal history of malignant neoplasm of bladder; Z85.54 Personal history of malignant neoplasm of ureter; J44.9 Chronic obstructive pulmonary disease, unspecified; E78.5 Hyperlipidemia, unspecified; I10 Essential (primary) hypertension; Z72.0 Tobacco use; Z79.899 Other long term (current) drug therapy
CPT/HCPCS: 52204; 96374; J2405

== ENCOUNTER → 2020-08-10 15:18 | Outpatient (CLI) | payer BC, SELFPAY ==
--- NOTE | 2020-08-10 15:21 | CT_ITS ---
PROCEDURE: CT LUNG SCREENING CLINICAL INDICATION: H/O NICOTINE DEPENDENCE Current smoker 25.5 pack year smoking history Copd Hx bladder cancer Prior on pacs COMPARISON: CT CT LUNG SCREENING from 12/10/2018 TECHNIQUE: The exam was performed on a GE Light Speed [address] scanner using 2.90 mGy CTDI. A low dose helical CT CHEST was performed on a multi-detector scanner. All CT scans at the facility use one or more dose reduction, viz: automated exposure control, ma/kV adjustment per patient size (including targeted exams where dose is matched to indication, i.e. head), or iterative reconstruction technique. The LDCT was performed in a facility that meets the criteria for the screening program. Data regarding this exam was submitted to ACR which is an approved registry. The order for this exam indicates that it came as a result of a lung cancer screening counseling shard decision-making visit that included all the elements required of such a visit including smoking cessation. The radiologist interpreting this exam meets the CMS criteria for the LDCT lung cancer screening program. The exam is reported using the Lung-RADS classification scale and reported to the ACR registry. NOTE: This study was performed for the specific purposes of lung cancer screening and is not an alternative to diagnostic chest CT. RADIATION DOSE: CTDI vol(CT dose Index-volume) = 2.90mG DLP (Dose Length Product) = 111.51 mGcm FINDINGS: Severe centrilobular and paraseptal emphysematous changes with bullous changes in the right apex with scattered areas of scarring. No suspicious nodules evident. There are few scattered small mediastinal lymph nodes. Coronary artery calcification is present. No mediastinal or hilar mass. OTHER FINDINGS: No other pertinent findings evident. IMPRESSION: Lung-RADS Category 1 Negative Follow-up: Continue annual screening with LDCT in 12 months Dictated by: Wally Ogden MD 08/20/2020 14:49 Wally Ogden MD in [place] 08/20/2020 14:49
== END ==
PROVIDERS: PCP Internal Medicine Adolescent Medicine; Visit Provider Internal Medicine Adolescent Medicine
DX: Z87.891 Personal history of nicotine dependence (principal); Z12.2 Encounter for screening for malignant neoplasm of respiratory organs
CPT/HCPCS: 71271

== ENCOUNTER → 2020-10-26 13:31 | Outpatient (CLI) | payer BC, SELFPAY | PROVIDERS: Visit Provider Urology | DX: Z01.812 Encounter for preprocedural laboratory examination (principal); C67.9 Malignant neoplasm of bladder, unspecified; Z20.822 Contact with and (suspected) exposure to COVID-19 | CPT/HCPCS: U0003 ==

== ENCOUNTER 2020-10-29 10:56 | Day surgery (SDC) | payer BC, SELFPAY ==
[2020-10-24 10:49] VITALS: BMI 29.5
[2020-10-29] VITALS (10 sets, daily range): BP systolic 100–149; BP diastolic 60–95; PULSE 50–72; RESP 12–18; TEMP 36.1–36.7; O2SAT 91–100
--- NOTE | 2020-10-29 14:39 | HMH.ANESCL ---
[facility] Anesthesia Checklist - Patient Identification Patient Identification: Arm Band, Verbal (Name & ) - Structural Data Admitted From: Home Planned Operative Procedure/s: cysto Consent for Planned Operative Procedure(s) Verified: Yes Verified Documents: Surgical Consent, History and Physical - Additional verifications Patient : No Anesthesia Reactions: No Hx Blood Transfusions: No Blood Transfusion Reaction: No Previous Colonoscopy: Yes - Airway Assessment C-Spine Mobility Assessed: Yes TMJ Mobility Assessed: Yes Dentition: Good Dentition - Neurological Assessment Level of Consciousness: Awake, Alert, Appropriate Hx Seizures: No Numbness or tingling in extremities: No - Anesthesia Plan Anesthesia Risk discussed: Yes Anesthesia Plan: Verified ASA Class: III Anesthesia Type: General [facility] History I have reviewed the patient's past medical history: Yes Medical History: Reports:: Cancer (bladder), Chronic Obstructive Pulmonary Disease (COPD), Hyperlipidemia, Hypertension Denies:: Diabetes Mellitus Type 1, Diabetes Mellitus Type 2, Internal Pacemaker, MRSA, Seizures *Have you ever received a pneumonia vaccine?: No *Have you received a flu vaccine this season?: Yes Other Medical History: Denies: Blood Transfusion Reaction Anesthesia experience/problems:: none Laterality Cases: Bilateral: Other Other Surgeries: Yes: No Previous Surgery, Cancer Surgery, Colonoscopy, Hernia Repair, Other. No: Pacemaker Amputation: No Fractures: Yes (jaw) - *Social History Last grade of school completed: Advanced degree Smoking Status: Current every day smoker Tobacco Type: cigarettes # Packs/Day (cigarettes): 1 #Yrs smoked (if former smoker): 40 Alcohol Intake: never Alcohol Intake Frequency:: a few times a month Substance Use Type: denies use *Occupational Status:: employed Housing: house Household Members: spouse *Travel in the last 8 weeks: Inside the [facility] Family Hx:: No significant family history
--- NOTE | 2020-10-29 14:41 | P.PN_ITS ---
[facility] Anesthesia Record Part I Intake, IV Amount: 600 Estimated blood loss (mL): 10 Urine output (mL): 0 Blood Products used (#): none Blood Pressure: 100/60 SaO2: 100 Pulse Rate: 60 Respiratory Rate: 12 Temperature: 97.1 F Patient is:: Drowsy Stable to PACU at:: 14:03
--- NOTE | 2020-10-29 14:43 | P.PN_ITS ---
[facility] Anesthesia Record Part II Discharge Time: 14:03 Destination: Surgical Day Care (OP Surgery) PACU nurse assessment reviewed?: Yes Patient Condition:: Good Anesthesia Complications:: None Swallowing reflex intact?: Yes Cyanosis?: No Blood Pressure: 101/66 Pulse Rate: 70 Temperature: 98 F Mental Status: Alert & Oriented Pain level:: 0 Nausea and/or vomitting:: None Intake, IV Amount: 30
--- NOTE | 2020-10-29 15:47 | HMH.OPNOTE ---
Date of procedure: 10/29/20 Pre-op Diagnosis:: History of bladder cancer and distal ureteral cancer Post-op Diagnosis:: Same Procedure performed:: Cystoscopy with left ureteroscopy Surgeon:: Aleks Chicas MD MANUFACTURING INSPECTOR:: Vikash Lundberg Anesthesia: LMA Estimated blood loss (mL): 0 Clinical Note:: Patient is a 65-year-old white male with a history of bladder cancer and tumor in the distal ureter who presents for his 4-month surveillance cystoscopy. He denies any gross hematuria in the interim. Operative findings:: No evidence of the recurrent tumor in the bladder nor in the distal ureter. Operative note:: Patient taken to the operating room after informed consent was obtained. He was placed on the operating table in the supine position and general anesthesia administered. He was then placed into the dorsal lithotomy position and prepped draped in the standard surgical fashion. Preoperative antibiotics and sequential compression devices were placed. The 22 Gabo passed into the urethra and into the bladder without difficulty. The bladder was examined with the 30 and 70 degree lenses. There is no evidence of mucosal abnormalities, bladder tumor recurrence, stones or trabeculation. The ureteral orifices were in their normal anatomic position with clear efflux of urine. Scope then removed and our semirigid ureteroscope was passed into the urethra and into the bladder and into the left ureter. The ureter was visualized up to the mid ureter without evidence of abnormality. Scope then removed and the patient tolerated the procedure well there are no complications. Condition: stable Disposition: PACU Specimens:: None Complications:: None
== END 2020-10-29 15:20 | disposition home or self-care (01) ==
LOC: OR 10:58
PROVIDERS: PCP Internal Medicine Adolescent Medicine; Visit Provider Urology
PROC: 0TJB8ZZ Inspection of Bladder, Via Natural or Artificial Opening Endoscopic (ICD-10-PCS; CPT 52000; principal; 2020-10-29 12:30)
DX: Z08 Encounter for follow-up examination after completed treatment for malignant neoplasm (principal); Z85.51 Personal history of malignant neoplasm of bladder; Z85.54 Personal history of malignant neoplasm of ureter; J44.9 Chronic obstructive pulmonary disease, unspecified; E78.5 Hyperlipidemia, unspecified; I10 Essential (primary) hypertension; Z72.0 Tobacco use; Z90.49 Acquired absence of other specified parts of digestive tract; Z79.899 Other long term (current) drug therapy
CPT/HCPCS: 52000; 96374; J2405

== ENCOUNTER → 2021-05-10 13:17 | Outpatient (CLI) | payer BC, SELFPAY ==
[2021-05-10 13:22] LABS: MANUAL DIFFERENTIAL MANUAL DIFFERENTIAL (MANUAL DIFF)
[2021-05-10 14:47] LABS: Basophils # 0.1 K/mm3 (0-0.2); Basophils % 0.7 % (0.1-2.0); Eosinophils # 0.1 K/mm3 (0.0-0.4); Eosinophils % 1.3 % (0.1-12.0); Hematocrit 46.2 % (42.0-52.0); Hemoglobin 15.7 g/dL (14.1-18.0); Lymphocytes # 2.6 K/mm3 (0.7-4.5); Lymphocytes % 28.2 % (10-50); Mean Corpuscular HGB Conc 33.9 g/dL (31.8-35.4); Mean Corpuscular Hemoglobin 33.3 pg (27.0-31.2); Mean Corpuscular Volume 98.3 fl (80-94); Mean Platelet Volume 8.4 fl (7.4-10.4); Monocytes # 0.3 K/mm3 (0.1-1.0); Monocytes % 3.7 % (1.7-9.3); Neutrophils % 66.1 % (37.0-80.0); Platelet Count 253 K/mm3 (142-424); Red Blood Count 4.69 M/mm3 (4.60-6.20); Red Cell Distribution Width 13.2 % (11.5-17.5); White Blood Count 9.1 K/mm3 (4.8-10.8)
[2021-05-10 16:04] LABS: Anion Gap 12.3 mEq/L (5-15); Blood Urea Nitrogen 10 mg/dl (9-20); Carbon Dioxide 25 mmol/L (22.0-30.0); Chloride 104 mmol/L (98-107); Estimated Glomerular Filt Rate 112 ml/min (>60); GFR (African American) 136 ML/MIN (>60); Glucose 137 mg/dl (74-100); Potassium 4.3 mmoL/L (3.5-5.1); Sodium 137 mmol/L (136-145)
[2021-05-10 17:03] LABS: Lymphocytes % 18 % (10-50); Monocytes % 5 % (2-9); Neutrophils % 77 % (42-76); Total Cells Counted 100
[2021-05-10 17:04] LABS: Anisocytosis 1+; Microcytosis 1+; Platelet Estimate Normal
== END ==
PROVIDERS: Visit Provider Urology
DX: Z01.812 Encounter for preprocedural laboratory examination (principal); Z11.52 Encounter for screening for COVID-19; C67.9 Malignant neoplasm of bladder, unspecified
CPT/HCPCS: 36415; 80048; 85007; 85014; 85018; 85048; 85049; C9803; U0003; U0005

== ENCOUNTER 2021-05-13 07:36 | Day surgery (SDC) | payer BC, SELFPAY ==
[2021-05-09 12:38] VITALS: BMI 28.8
[2021-05-13] VITALS (10 sets, daily range): BP systolic 106–145; BP diastolic 65–81; PULSE 59–71; RESP 16–19; TEMP 36.3–36.8; O2SAT 93–96
--- NOTE | 2021-05-13 08:18 | P.PN_ITS ---
[facility] Anesthesia Checklist - Structural Data Admitted From: Home Planned Operative Procedure/s: cysto Consent for Planned Operative Procedure(s) Verified: Yes - Additional verifications Anesthesia Reactions: No Hx Blood Transfusions: No Blood Transfusion Reaction: No - Airway Assessment C-Spine Mobility Assessed: Yes TMJ Mobility Assessed: Yes Dentition: Good Dentition - Neurological Assessment Level of Consciousness: Awake, Alert, Appropriate - Anesthesia Plan Anesthesia Risk discussed: Yes Anesthesia Plan: Verified ASA Class: II Anesthesia Type: General [facility] History I have reviewed the patient's past medical history: Yes Medical History: Reports:: Cancer (bladder), Chronic Obstructive Pulmonary Disease (COPD), Hyperlipidemia, Hypertension Denies:: Diabetes Mellitus Type 1, Diabetes Mellitus Type 2, Internal Pacemaker, MRSA, Seizures *Have you ever received a pneumonia vaccine?: No *Have you received a flu vaccine this season?: No Other Medical History: Denies: Blood Transfusion Reaction Anesthesia experience/problems:: none Laterality Cases: Bilateral: Other Other Surgeries: Yes: No Previous Surgery, Cancer Surgery, Colonoscopy, Hernia Repair, Other. No: Pacemaker Amputation: No Fractures: Yes (jaw) - *Social History Last grade of school completed: Some college Smoking Status: Current every day smoker Tobacco Type: cigarettes # Packs/Day (cigarettes): 1 #Yrs smoked (if former smoker): 40 Alcohol Intake: never Alcohol Intake Frequency:: a few times a month Substance Use Type: denies use *Occupational Status:: employed Housing: house Household Members: spouse *Travel in the last 8 weeks: Inside the [employer] [place] Family Hx:: Kidney Disease
--- NOTE | 2021-05-13 09:54 | HMH.ANESI ---
[facility] Anesthesia Record Part I Intake, IV Amount: 500 Estimated blood loss (mL): 5 Urine output (mL): 0 Blood Pressure: 106/65 SaO2: 96 Pulse Rate: 64 Respiratory Rate: 19 Temperature: 98.0 F Patient is:: Drowsy Stable to PACU at:: 09:49
--- NOTE | 2021-05-13 12:53 | P.OP_ITS ---
Date of procedure: 05/13/21 Pre-op Diagnosis:: History of bladder cancer and left distal ureteral cancer Post-op Diagnosis:: Same Procedure performed:: Cystoscopy with left ureteroscopy Surgeon:: Aleks Chicas MD ENVIRONMENTAL HEALTH TECHNOLOGIST:: Other (naresh s) Anesthesia: LMA Estimated blood loss (mL): 0 Clinical Note:: 65-year-old white male with history of bladder cancer and distal left ureteral cancer presents for 6-month cystoscopic and ureteroscopic surveillance. He denies any gross hematuria. He does continue to smoke but has reduced his cigarettes. Operative findings:: No evidence of tumor recurrence in the bladder or the ureter. Operative note:: Patient taken to the operating room after informed consent was obtained. He was placed on the operating table in the supine position and general anesthesia administered. Preoperative antibiotics administered and he was then placed into the dorsal lithotomy position. Was prepped and draped in the standard surgical fashion. The 22 [place] cystoscope passed into the urethral meatus and into the bladder without difficulty. The bladder was examined in a systematic fashion with a 30 and 7 degree lenses. There is no evidence of bladder tumor recurrence. The cystoscope removed and our semirigid ureteroscope was then passed into the bladder and into the left ureter there is no evidence of tumor recurrence in the left ureter. Scope then removed the bladder drained. Urojet placed into the urethra. Patient tolerated procedure well no complications. Condition: stable Disposition: PACU Specimens:: None Complications:: None
--- NOTE | 2021-05-13 16:33 | HMH.ANESII ---
[facility] Anesthesia Record Part II Discharge Time: 10:19 Destination: Surgical Day Care (OP Surgery) PACU nurse assessment reviewed?: Yes Patient Condition:: Good Anesthesia Complications:: None Swallowing reflex intact?: Yes Cyanosis?: No Blood Pressure: 123/72 Pulse Rate: 64 Temperature: 97.4 F Mental Status: Alert & Oriented Pain level:: 0 Nausea and/or vomitting:: None Intake, IV Amount: 0
== END 2021-05-13 10:55 | disposition home or self-care (01) ==
LOC: OR 07:38
PROVIDERS: PCP Internal Medicine Adolescent Medicine; Visit Provider Urology
PROC: 0TJB8ZZ Inspection of Bladder, Via Natural or Artificial Opening Endoscopic (ICD-10-PCS; CPT 52000; principal; 2021-05-13 09:00)
DX: Z08 Encounter for follow-up examination after completed treatment for malignant neoplasm (principal); Z85.51 Personal history of malignant neoplasm of bladder; Z85.54 Personal history of malignant neoplasm of ureter; E78.5 Hyperlipidemia, unspecified; I10 Essential (primary) hypertension; J44.9 Chronic obstructive pulmonary disease, unspecified
CPT/HCPCS: 52000; 96374; J2405

== ENCOUNTER → 2021-05-23 09:18 | Outpatient (CLI) | payer BC, SELFPAY ==
[2021-05-23 10:37] LABS: Chol/HDL Ratio 2.4 (1-3.5); Cholesterol 120 mg/dl (140-200); HDL Cholesterol 50 mg/dl (40-60); Triglycerides 57 mg/dl (30-150); VLDL Cholesterol 11 mg/dL (0-40)
[2021-05-23 10:47] LABS: Direct LDL Cholesterol 53.14 mg/dL (100-129)
[2021-05-23 12:11] LABS: Hemoglobin A1C 6.1 % (4.0-6.0)
== END ==
PROVIDERS: Visit Provider Internal Medicine Adolescent Medicine
DX: E78.5 Hyperlipidemia, unspecified (principal); R73.9 Hyperglycemia, unspecified
CPT/HCPCS: 36415; 80061; 83036

== ENCOUNTER 2021-05-24 14:06 | Emergency (ER) | payer BC, SELFPAY ==
[2021-05-24 14:17] VITALS: BP 135/65; PULSE 71; RESP 16; TEMP 36.6; O2SAT 97; BMI 30.2
--- NOTE | 2021-05-24 14:32 | HMH.EDGENADL ---
ED Disposition Clinical Impression: Laceration of forehead without complication Qualifiers: Encounter type: initial encounter Qualified Code(s): S01.81XA - Laceration without foreign body of other part of head, initial encounter Disposition: Home, Self-Care Condition on Discharge: Good Instructions: DI for Laceration Repair of the Scalp Referrals: Wayne Vazquez MD [Primary Care Provider] - - Critical Care Critical Care Time: No Attestation: On 05/24/21, the high probability of a clinically significant, sudden or life threatening deterioration of the following system(s) required my full and direct attention, intervention and personal management. The time I documented below is in addition to time spent performing reported procedures but includes the following listed in this critical care notation. Medical Decision Making - Medical Records Medical records reviewed: Yes: I reviewed the patient's medical records. - Daniel Inquiry Pt receiving controlled substance: No Vital Signs: 05/24/21 14:17 Temperature 97.8 F Temperature Source Oral Pulse Rate [Left Radial] 71 Respiratory Rate 16 Blood Pressure [Right Arm] 135/65 Blood Pressure Mean [Right Arm] 88 02 Sat by Pulse Oximetry 97 Medical Decision Narrative: This is a 65-year-old male presenting with some minor trauma to the head. Patient does have a small laceration to the upper forehead. I do believe will benefit from Dermabond. Patient has a normal neurologic exam at this time. There are no focal deficits. I do not believe the patient requires imaging at this time as he is asymptomatic. I did have a discussion with the patient regarding this. He is agreeable with his medical management. He does need repeat neurologic examination by his PCP or the emergency department in 48 hours. He was given strict return precautions. Verbalized understanding. General Adult HPI - General Chief complaint: PAIN Stated complaint: head injury Time Seen by Provider: 05/24/21 14:20 Mode of Arrival: Ambulatory Limitations: No Limitations Description of Symptoms (Recalled from ER Triage Doc. by RN): pt to ed c/o head contusion. pt states he was walking on the sidewalk to his office, walked under a hydraulic paint ladder and at the same time the person on the ladder dropped down the platform and hit him on top of the head. pt states he takes aspirin daily. pt reports being seen at his pcp office and he was sent to ed for eval. pt denies headache or ams. - History of Present Illness HPI narrative: This is a 65-year-old male presented to the emergency department after sustaining a head injury. The patient states that he was walking on the sidewalk when a scaffold which was remote came down and hit him in the head. Patient dates that he was hit on the top of the forehead. He has a small laceration to the top of the scalp. It was bleeding significantly at the time. The patient did not lose consciousness during the event. It did knock him over to his knees, but he did not actually hit his head after the initial insult. Patient is asymptomatic at this time. Denies any headache or change in vision. No focal weakness. No abdominal pain or vomiting. No diarrhea. No chest pain or shortness of breath. No other musculoskeletal discomfort. - Related Data Home Medications Medication Instructions Recorded Confirmed Tamsulosin HCl [Flomax 0.4mg 0.4 mg PO HS 02/20/20 05/13/21 capsule] Amlodipine Besylate 5 mg PO DAILY 05/13/21 05/13/21 Atorvastatin Calcium [Lipitor 40mg 40 mg PO HS 05/13/21 05/13/21 Tab] Allergies Allergy/AdvReac Type Severity Reaction Status Date / Time No Known Drug Allergies Allergy Unknown Verified 10/29/20 11:03 [NKDA] [facility] History - Hepatitis A Screen Drug use history?: No High risk sexual behaviors?: No History of sexually transmitted infection?: No Currently employed?: No Childcare worker?: No Do you have in
[2021-05-24 14:44] VITALS: BP 136/70; PULSE 72; RESP 17; TEMP 36.6; O2SAT 99
== END 2021-05-24 14:47 | disposition home or self-care (01) ==
PROVIDERS: Emergency Provider Emergency Medicine; PCP Internal Medicine Adolescent Medicine
DX: S01.81XA Laceration without foreign body of other part of head, initial encounter (principal); W20.1XXA Struck by object due to collapse of building, initial encounter; Y92.89 Other specified places as the place of occurrence of the external cause; J44.9 Chronic obstructive pulmonary disease, unspecified; E78.5 Hyperlipidemia, unspecified; I10 Essential (primary) hypertension; Z85.51 Personal history of malignant neoplasm of bladder; F17.210 Nicotine dependence, cigarettes, uncomplicated
CPT/HCPCS: 12001; 99282

== ENCOUNTER → 2021-09-17 15:35 | Outpatient (POV) | payer BC, SELFPAY | PROVIDERS: Visit Provider Dermatology | DX: Z00.00 Encounter for general adult medical examination without abnormal findings (principal) ==

== ENCOUNTER → 2021-09-23 15:10 | Outpatient (CLI) | payer BC, SELFPAY ==
--- NOTE | 2021-09-23 15:14 | CT_ITS ---
FINAL REPORT TECHNIQUE: Axial images were obtained from the lung apex to the mid abdomen by computed tomography. This study was performed with techniques to keep radiation doses as low as reasonably achievable (ALARA). Individualized dose reduction techniques using automated exposure control or adjustment of mA and/or kV according to the patient's size were employed. CLINICAL HISTORY: ABN FINDINGS ON LOW DOSE LUNG SCREENING SMOKER 1PPD X52 YEARS COMPARISON: 08/10/2020 FINDINGS: CHEST CT LOW DOSE CTDI vol (mGy): 2.90 DLP (mGy-cm): 106.55 There is no axillary adenopathy. There is no hilar or mediastinal adenopathy. The ascending aorta measures 3.8 cm in diameter. The heart is normal in size. There is no pericardial or pleural effusion. Lung window images demonstrate no suspicious infiltrate or nodule. There are advanced changes of centrilobular emphysema in the upper lobes. Limited images of the upper abdomen are unremarkable. IMPRESSION: And centrilobular emphysema. Lung RADS category 1S. Recommend 12 month follow-up low-dose chest CT. Reviewed, Interpreted and Dictated by Gumaro Villatoro MD Transcribed by Ángela Irby Authenticated and [facility]
== END ==
PROVIDERS: PCP Internal Medicine Adolescent Medicine; Visit Provider Internal Medicine Adolescent Medicine
DX: Z87.891 Personal history of nicotine dependence (principal); Z12.2 Encounter for screening for malignant neoplasm of respiratory organs
CPT/HCPCS: 71271

== ENCOUNTER → 2022-07-07 09:09 | Outpatient (CLI) | payer BC, SELFPAY ==
--- NOTE | 2022-07-07 09:12 | US_ITS ---
FINAL REPORT TECHNIQUE: Sonographic imaging of the abdominal aorta was obtained. CLINICAL HISTORY: PERSONAL H/O NICOTINE DEPENDENCE FINDINGS: The abdominal aorta is within normal limits, without evidence of aneurysm. Proximal aorta measures up to 2.1 cm. IMPRESSION: No evidence of abdominal aortic aneurysm. Reviewed, Interpreted and Dictated by Shaun Borden III, MD Transcribed by Fátima Gallardo Authenticated and [facility]
== END ==
PROVIDERS: PCP Internal Medicine Adolescent Medicine; Visit Provider Internal Medicine Adolescent Medicine
DX: Z87.891 Personal history of nicotine dependence (principal)
CPT/HCPCS: 76705

== ENCOUNTER → 2022-09-04 11:44 | Outpatient (CLI) | payer BC, SELFPAY ==
--- NOTE | 2022-09-04 | XR_ITS ---
FINAL REPORT CLINICAL HISTORY: Right hip pain COMPARISON: None FINDINGS: RIGHT HIP Two views of the right hip demonstrate no acute fracture or dislocation. The joint spaces appear normal. The visualized bony structures are well aligned. No soft tissue abnormality is seen. IMPRESSION: No acute bony abnormality. Reviewed, Interpreted and Dictated by Gumrao Villatoro MD Transcribed by Renata Gonsalves Authenticated and [facility]
--- NOTE | 2022-09-04 11:53 | XR_ITS ---
FINAL REPORT CLINICAL HISTORY: Sacroiliac pain COMPARISON: None FINDINGS: SACROILIAC JOINTS SERIES Three views were obtained. There is no acute fracture or dislocation. There is mild sclerosis of the SI joints consistent with osteoarthritis. The visualized bony structures are well aligned. No soft tissue abnormality is seen. 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 No acute bony abnormality. Reviewed, Interpreted and Dictated by Gumaro Villatoro MD Transcribed by Renata Gonsalves Authenticated and [facility]
--- NOTE | 2022-09-04 11:53 | XR_ITS ---
FINAL REPORT CLINICAL HISTORY: Low back pain COMPARISON: None FINDINGS: LUMBOSACRAL SPINE SERIES Five views of the lumbosacral spine were obtained. There is no fracture present. There is no malalignment. There is mild anterior osteophyte formation at L3-4 and L4-5. Vertebrae are normal in height. There is moderate facet sclerosis in the lower lumbar spine. IMPRESSION: Degenerative change without acute bony abnormality. Reviewed, Interpreted and Dictated by Gumaro Villatoro MD Transcribed by Renata Gonsalves Authenticated and [facility]
== END ==
PROVIDERS: PCP Internal Medicine Adolescent Medicine; Visit Provider Internal Medicine Adolescent Medicine
DX: M54.50 Low back pain, unspecified (principal); M25.551 Pain in right hip; M46.1 Sacroiliitis, not elsewhere classified
CPT/HCPCS: 72110; 72202; 73502

== ENCOUNTER → 2022-10-01 14:43 | Outpatient (CLI) | payer BC, SELFPAY ==
--- NOTE | 2022-10-01 14:49 | CT_ITS ---
FINAL REPORT TECHNIQUE: Thin section axial images were obtained through the lungs using a low-dose technique per lung cancer screening protocol. Reconstruction images were obtained using the axial data. Exam was performed using dose reduction technique. CLINICAL HISTORY: NICOTINE DEPENDANCE 1 ppd for 55 years COMPARISON: 09/23/2021 FINDINGS: CTDLvol: 2.9 DLP: 114.38 Current smoker 55 pack year history Lungs: Changes of emphysema are once again identified. No suspicious nodules. Lymph nodes: No thoracic lymphadenopathy. Mediastinum: Heart size is normal. Pleura/pericardium: No pleural or pericardial effusion. Other: No acute abnormality in the upper abdomen. IMPRESSION: No suspicious pulmonary nodule or mass. Changes of emphysema once again identified. Lung RADS: 1 Recommendation: 12-month follow-up LDCT Reviewed, Interpreted and Dictated by Hetal Vizcaino MD Transcribed by Sherrell Mayer Authenticated and [facility]
== END ==
PROVIDERS: PCP Internal Medicine Adolescent Medicine; Visit Provider Internal Medicine Adolescent Medicine
DX: Z87.891 Personal history of nicotine dependence (principal); Z12.2 Encounter for screening for malignant neoplasm of respiratory organs
CPT/HCPCS: 71271

== ENCOUNTER 2023-10-08 09:56 | Outpatient (CLI) | payer BC, SELFPAY ==
--- NOTE | 2023-10-08 10:10 | XR_ITS ---
FINAL REPORT CLINICAL HISTORY: MIDLINE BACK PAIN FINDINGS: LUMBAR SPINE, 5 views FINDINGS: No fracture is identified. Mild disc space narrowing is present diffusely. Moderate facet arthropathy is noted lower lumbar spine. There is probable bony neural foraminal narrowing and central canal stenosis lower lumbar spine. Alignment is normal . IMPRESSION: Degenerative changes particularly lower lumbar spine. MR follow-up may be considered. Authenticated and [facility]
--- NOTE | 2023-10-08 10:17 | CT_ITS ---
FINAL REPORT TECHNIQUE: Axial CT images of the chest were obtained without contrast. Low-dose protocol was utilized. This study was performed with techniques to keep radiation doses as low as reasonably achievable (ALARA). Individualized dose reduction techniques using automated exposure control or adjustment of mA and/or kV according to the patient's size were employed. CLINICAL HISTORY: SCREENING CURRENT SMOKER 1 PPD X 56 YEARS COMPARISON: 10/01/2022 FINDINGS: CT CHEST WITHOUT, LOW DOSE SCREENING CT Di Vol: 2.90 mGy DLP: 115.94 mGy*cm There is no axillary, mediastinal, or hilar adenopathy. The heart size is normal. There is no pleural or pericardial effusion. The lung windows show no suspicious mass or nodule. There are advanced changes of emphysema in the upper lungs. Limited images of the upper abdomen demonstrate no acute findings. IMPRESSION: No suspicious nodules. LR Category 1: 12 month follow-up low-dose chest CT is recommended. Reviewed, Interpreted and Dictated by Pino Jones MD Transcribed by Renata Gonsalves Authenticated and [facility]
[2023-10-08 10:25] LABS: Basophils # 0.1 K/mm3 (0-0.2); Basophils % 1.3 % (0.1-2.0); Eosinophils # 0.1 K/mm3 (0.0-0.4); Eosinophils % 1.6 % (0.1-12.0); Hematocrit 41.5 % (42.0-52.0); Hemoglobin 14.9 g/dL (14.1-18.0); Lymphocytes # 2.1 K/mm3 (0.7-4.5); Lymphocytes % 25.9 % (10-50); Mean Corpuscular HGB Conc 35.9 g/dL (31.8-35.4); Mean Corpuscular Hemoglobin 36.4 pg (27.0-31.2); Mean Corpuscular Volume 101.2 fl (80-94); Mean Platelet Volume 7.9 fl (7.4-10.4); Monocytes # 0.4 K/mm3 (0.1-1.0); Neutrophils # 5.4 K/mm3 (1.8-7.8); Neutrophils % 66.2 % (37.0-80.0); Platelet Count 207 K/mm3 (142-424); Red Cell Distribution Width 14.1 % (11.5-17.5); White Blood Count 8.2 K/mm3 (4.8-10.8)
[2023-10-08 11:08] LABS: Alanine Aminotransferase 22 U/L (12-78); Albumin Level 3.9 g/dl (3.5-5.0); Albumin/Globulin Ratio 1.5 (1.1-1.8); Alkaline Phosphatase 115 U/L (38-126); Aspartate Amino Transferase 23 U/L (17-59); Bilirubin,Total 0.5 mg/dl (0.2-1.3); Blood Urea Nitrogen 12 mg/dl (9-20); Calcium 8.9 mg/dl (8.4-10.2); Carbon Dioxide 23 mmol/L (22.0-30.0); Chloride 110 mmol/L (98-107); Chol/HDL Ratio 3.3 (1-3.5); Cholesterol 167 mg/dl (140-200); Estimated Glomerular Filt Rate 111 ml/min (>60); GFR (African American) 135 ML/MIN (>60); Globulin 2.6 g/dL (1.3-3.2); Glucose 103 mg/dl (74-100); HDL Cholesterol 51 mg/dl (40-60); Sodium 138 mmol/L (136-145); Total Protein,Serum 6.5 g/dl (6.3-8.2); Triglycerides 108 mg/dl (30-150); VLDL Cholesterol 22 mg/dL (0-40)
[2023-10-08 11:19] LABS: Direct LDL Cholesterol 94.08 mg/dL (100-129)
[2023-10-08 12:17] LABS: Hemoglobin A1C 5.6 % (4.0-6.0)
[2023-10-09 08:21] LABS: PSA, Free 0.56 ng/mL; Prostate Specific Ag 5.7 ng/mL (0.0-4.0)
== END 2023-10-08 23:59 | disposition home or self-care (01) ==
LOC: LAB 09:59
PROVIDERS: PCP Internal Medicine Adolescent Medicine; Visit Provider Internal Medicine Adolescent Medicine
DX: M54.50 Low back pain, unspecified (principal); R97.20 Elevated prostate specific antigen [PSA]; E78.5 Hyperlipidemia, unspecified; J43.1 Panlobular emphysema; E78.2 Mixed hyperlipidemia; Z72.0 Tobacco use
CPT/HCPCS: 36415; 71271; 72110; 80053; 80061; 83036; 84153; 84154; 85025

== ENCOUNTER 2024-02-15 13:05 | Outpatient (CLI) | payer BC, SELFPAY ==
--- NOTE | 2024-02-15 13:08 | XR_ITS ---
FINAL REPORT CLINICAL HISTORY: lt hand injury COMPARISON: None FINDINGS: LEFT HAND: 3 views of the left hand were obtained. There is no acute fracture or dislocation. There are mild degenerative changes of the radial aspect of the wrist. Soft tissues are unremarkable. IMPRESSION: Degenerative changes without acute bony abnormality. Reviewed, Interpreted and Dictated by Shaun Borden III, MD Transcribed by Sharri Ward Authenticated and [facility]
== END 2024-02-15 23:59 | disposition home or self-care (01) ==
LOC: RAD 13:06
PROVIDERS: PCP Internal Medicine Adolescent Medicine; Visit Provider Physician Assistant
DX: S69.92XA Unspecified injury of left wrist, hand and finger(s), initial encounter (principal)
CPT/HCPCS: 73130

== ENCOUNTER 2024-03-29 16:06 | Outpatient (CLI) | payer BC, SELFPAY ==
[2024-03-29 16:56] LABS: Basophils # 0.1 K/mm3 (0-0.2); Basophils % 0.8 % (0.1-2.0); Eosinophils # 0.1 K/mm3 (0.0-0.4); Hematocrit 44.2 % (42.0-52.0); Hemoglobin 14.8 g/dL (14.1-18.0); Lymphocytes # 2.4 K/mm3 (0.7-4.5); Lymphocytes % 24.9 % (10-50); Mean Corpuscular HGB Conc 33.5 g/dL (31.8-35.4); Mean Corpuscular Hemoglobin 32.2 pg (27.0-31.2); Mean Corpuscular Volume 96.1 fl (80-94); Mean Platelet Volume 10.3 fl (7.4-10.4); Monocytes # 0.6 K/mm3 (0.1-1.0); Monocytes % 6.5 % (1.7-9.3); Neutrophils # 6.3 K/mm3 (1.8-7.8); Neutrophils % 66.5 % (37.0-80.0); Platelet Count 255 K/mm3 (142-424); Red Cell Distribution Width 13.5 % (11.5-17.5); White Blood Count 9.5 K/mm3 (4.8-10.8)
[2024-03-29 17:56] LABS: Anion Gap 13.5 mEq/L (5-15); Blood Urea Nitrogen 8 mg/dl (9-20); Calcium 9.5 mg/dl (8.4-10.2); Carbon Dioxide 21 mmol/L (22.0-30.0); Chloride 106 mmol/L (98-107); Estimated Glomerular Filt Rate 111 ml/min (>60); GFR (African American) 135 ML/MIN (>60); Glucose 80 mg/dl (74-100); Potassium 4.5 mmoL/L (3.5-5.1); Sodium 136 mmol/L (136-145)
[2024-03-31 08:17] LABS: PSA, Free 0.54 ng/mL; Prostate Specific Ag 6.7 ng/mL (0.0-4.0)
== END 2024-03-29 23:59 | disposition home or self-care (01) ==
LOC: LAB 16:08
PROVIDERS: PCP Internal Medicine Adolescent Medicine; Visit Provider Internal Medicine Adolescent Medicine
DX: R97.20 Elevated prostate specific antigen [PSA] (principal); I10 Essential (primary) hypertension
CPT/HCPCS: 36415; 80048; 84153; 84154; 85025

== ENCOUNTER 2024-09-13 14:57 | Outpatient (CLI) | payer MEDICARE, SELFPAY ==
--- OUTSIDE RECORDS SUMMARY | 2024-09-13 15:02 | XMS_ITS | Data Portability ---
Author Organization [place] - [facility] Address [address] [place] [address] Assessment No assessment recorded. Plan of Treatment Reminders Order Date Submit Date Provider Last Modified By Organization Details Last Modified Time Details Appointments PROC 15 2024 10:15A M Aleks Chicas Jr, MD Not available Not available Not available Lab PSA, total + free, serum or plasma 2023 024 Not available 08/21/2023 08:01:41 Referral None recorded . Procedures None recorded . Surgeries None recorded . Imaging None recorded . Medication Orders None recorded . Patient TargetsNo targets recorded. Patient InstructionsNo instructions recorded. Reason for Referral None Reported. Results Created Date Observation Date Name Description Value Unit Range Abnormal Flag Note LastModifiedBy Organization Detail LastModifiedTime 08/07/1908/06/2022 PROST ATE SPECI FIC AG (PSA) prostate specific Ag (PSA) 4.35 NG/mL 0.0-4. 0 high Not Available [facility] (Lab Registration) [address], [place], [address], 08/06/2022 16:28:53 08/07/1908/06/2022 PROST ATE SPECI FIC AG (PSA) note Unles s other zafar noted testi ng perfo rmed at: [facility] [address] [facility] [address] [phone] Brandon nolasco MD CLIA: [id number] Not Available [facility] (Lab Registration) [address] [place], [address], 08/06/2022 16:28:53 08/14/19 24 08/14/2023 PSA TOTAL + %FREE note Unles s other zafar noted testi ng perfo rmed at: [facility] [address] [address] [phone] Brandon nolasco MD CLIA: [id number] Not Available [facility] (Lab Registration) [address], [place], [address], 08/15/2023 08:17:56 08/14/19 24 08/15/2023 PSA TOTAL + %FREE prostate specific Ag, serum 6.2 NG/mL 0.0-4. 0 high Alexi ECLIA metho dolog y. . Accor ding to the Ameri can [employer]o g[employer] iatio n, Serum PSA shoul d decre ase and remai n at undet ectab le level s after radic al prost atect earl. The AUA defin es bioch emica l recur rence as an initi al PSA value 0.2 ng/mL or great er follo wed by a subse quent confi rmato ry PSA value 0.2 ng/mL or great er. Value s obtai reece with diffe rent assay metho ds or kits canno t be used inter mariano eably . Resul ts canno t be inter prete d as absol ak chin evide nce of the prese nce or absen ce of chris cook se. SENT TO REFER ENCE LAB Not Available [facility] (Lab Registration) [address], [place], [address], 08/15/2023 08:17:56 08/14/19 24 08/15/2023 PSA TOTAL + %FREE PSA, free 0.62 NG/mL n/a Alexi ECLIA metho dolog y. SENT TO REFER ENCE LAB Not Available [facility] (Lab Registration) [address], [place], [address], 08/15/2023 08:17:56 08/14/19 24 08/15/2023 PSA TOTAL + %FREE % free PSA 10.0 % The table below lists the proba bilit y of prost ate cance r for men with non-s uspic ious GRAYSON resul ts and total PSA betwe en 4 and 10 ng/mL , by patie nt age (Melissa bell et al, KESHIA 1997, 279:1 542). % Free PSA 50-64 yr 65-75 yr 0.00- 10.00 % 56% 55% 10.01 -15.0 0% 24% 35% 15.01 -20.0 0% 17% 23% 20.01 -25.0 0% 10% 20% >25.0 0% 5% 9% Pleas e note: Payam paredes et al did not make speci fic recom menda tions regar ding the use of perce nt free PSA for any other popul ation of men. [place]fo [place] at: [facility] [address] Lab Direc tor: Jose stinson PhD, Phone : [phone] SENT TO REFER ENCE LAB Not Available [facility] (Lab Registration) [address] , [place], [address], 08/15/2023 08:17:56 Result Notes None recorded. Procedures Surgical History Date Name Laterality Status Provider Name and Address Organization Details Recorded Time 4 Cystoscopy-Mal e completed Aleks Chicas Jr, MD [address] [place] [address] Drive, [address], [place], [address], [facility] [place] 08/14/2023 11:00:04 3 Cystoscopy-Mal e completed Aleks Chicas Jr, MD [address] [place] [address] Drive, [address], [place], [address], [place] [facility] [place] 08/06/2022 15:07:50 Hernia Repair completed Denise SELF [facility] [place] 08/06/2022 13:51:33 operation on urinary bladder completed Denise SELF [facility] [place] 08/06/2022 13:51:46 Imaging Results None recorded. Procedure Notes None recorded. Medical Equipment None Reported. Allergies No known drug allergies Medications Name Sig Start Date Stop Date Status Note LastModified by Organization Details LastModified Time Flomax 0.4 mg capsule Take 1 capsule every day by oral route. 08/13 completed Not Available Not Available Not Available atorvastatin 40 mg tablet active Not Available Not Available Not Available amlodipine 5 mg tablet active Not Available Not Available No t Available fluticasone propionate 50 mcg/actuatio n nasal spray,suspen wero active Not Available Not Available Not Available amoxicillin 875 mg-potassium clavulanate 125 mg tablet 08/13 completed Not Available Not Available Not Available aspirin active Not Available Not Avail able Not Available Lipitor 08/13 completed Not Available Not Available Not Available Symbicort 160 mcg-4.5 mcg/actuatio n HFA aerosol inhaler active Not Available Not Available Not Available Vitals Date Recorded Body height Body mass index (BMI) Body weight Body temperature Provider Name and Address Organization Details Last Updated DateTime 08/06/2022 187.96 cm 29.3 kg/m2 249686.06 g 97.9 [degF] Denise Ortiz [facility] [place] 08/06/2022 13:49:23 Date Recorded Body height Body mass index (BMI) Body weight Body temperature Provider Name and Address Organization Details Last Updated DateTime 08/14/2023 187.96 cm 29.3 kg/m2 341116.06 g 98.1 [degF] Denise Ortiz [facility] [place] 08/14/2023 09:34:27 Date Recorded Body height Body mass index (BMI) Body weight Body temperature Provider Name and Address Organization Details Last Updated DateTime 08/26/2023 187.96 cm 29.3 kg/m2 943386.06 g 97.5 [degF] Dorcas Lala [facility] [place] 08/26/2023 10:35:10 Social History None recorded. Functional Status Question Answer Note LastModified by Organization D etails LastModified Time What is your level of alcohol consumption? None [email or web address] Information not available 08/06/2022 Mental Status None recorded. Family History Relationship Description Onset Age of this Age Resolved Age Notes LastModified by Organization Details LastModified Time Mother Heart disease dec [email or web address] Not available 2022 13:50:47 Father Kidney disease dec [email or web address] Not available 2022 13:50:56 Brother Family history unknown Not available 2022 13:51:05 Medical History No medical history recorded. Past Encounters Encounter ID Performer Location Encounter Start Date Encounter Closed Date Diagnosis/Indication Diagnosis SNOMED-CT Code Diagnosis ICD10 Code Diagnosis Note [id number] Aleks Chicas Jr, MD [facility] [address] [address] 08/06/2022 13:27:02 08/06/2022 14:17:48 History of malignant neoplasm of bladder 218661300 Z85.51 patient with history of bladder cancer originally diagnosed in 2019. Follow-up cystoscopi es have shown no evidence of recurrence . Surveillan ce cystoscopy today showed no evidence of recurrence . I could see into the distal left ureter and there was normal. Patient reassured we will see him back in 1 year with cystoscopy . Screening for malignant neoplasm of prostate 621832980 Z12.5 PSA obtained today. Patient denies any lower urinary tract symptoms. He was previously on Flomax but discontinu ed it after the refills ran out denies any change in his urinary habits. [id number] Aleks Chicas Jr, MD [facility] [address] [address] 08/14/2023 09:24:11 08/14/2023 10:09:30 History of malignant neoplasm of bladder 784601151 Z85.51 patient with history of bladder cancer originally diagnosed in 2019. Follow-up cystoscopi es have shown no evidence of recurrence . Surveillan ce cystoscopy today showed no evidence of recurrence . I could see into the distal left ureter and there was normal. Patient reassured we will see him back in 1 year with cystoscopy . Screening for malignant neoplasm of prostate 657220537 Z12.5 prostate exam today 30 g, smooth and symmetric. PSA a year ago was 4.3. We will repeat today. [id number] Aleks Chicas Jr, MD [facility] [address] [address] 08/26/2023 10:21:46 08/26/2023 11:02:38 Prostate specific antigen above reference range 131508834 R97.20 recent PSA was 6.2 with a free PSA stratifyin g patient's risk at 55% of prostate cancer. Previous PSA was 4.3 a year ago. Prostate examinatio n today shows no evidence of suspicious areas. We discussed options of prostate biopsy versus close monitoring . Patient states he is very busy at work right now and can not proceed with biopsy at this time. He would like to repeat his PSA in a month to determine stability. We will see him back next month after his PSA. History of malignant neoplasm of bladder 486890304 Z85.51 patient with history of bladder cancer originally diagnosed in 2019. Follow-up cystoscopi es have shown no evidence of recurrence . Surveillan ce cystoscopy last month showed no evidence of recurrence . I could see into the distal left ureter and there was normal. Patient reassured we will see him back in 1 year with cystoscopy . Health Concerns Section Related Observation LastModified by Organization Detai ls LastModified Time None Recorded Concern Status LastModified by Organization Details LastModified Time None Recorded Advance Directives Directive None Recorded Payers Insurance Date Sequence Insurance Name Policy Number Policy Guzman Covered Member ID Guzman Member ID Guarantor Name 08/25/2023 1 [place] [id number] Zaid Hdz [id number] Zaid Hdz 09/06/2023 2 [place] Zaid Hdz [id number] Zaid Hdz Notes Date Note Type Note Provider Name and Address Organization Details Recorded Time 08/06/2022 text/html patient is a 67-year-old white male with a history of bladder cancer that extended into his distal left ureter. He was previously seen at [facility] and presents for transfer of care today. His last surveillance cystoscopy was in April 2021. There was no evidence of disease at that time. Ureteroscopy was also performed showing no evidence of disease is distal left ureter. He returns today in routine follow-up and denies any hematuria. Does state he had a little bit of blood in his ejaculate recently but had not been sexually active for several months. Urine today shows no evidence of blood. Aleks Chicas Jr, MD [address] [place] [address] Drive, [address], [place], [address], [facility] [place] 08/06/2022 15:10:41 08/14/2023 text/html patient is a 68-year-old white male with history bladder cancer that extended into his distal left ureter. Returns today for routine follow-up. His last cystoscopy was a year ago. He denies any interval hematuria.His last PSA was 4.3 a year ago. Does have history of Hematospermia but no recent problems. Aleks Chicas Jr, MD [address] [place] [address], [address], [address], [place] [facility] [place] 08/14/2023 11:01:13 08/26/2023 text/html Patient is a 68-year-old white male with history of elevated PSA and history of bladder cancer. At his last visit 3 weeks ago his PSA was drawn and was elevated to 6.2. Free PSA but him at a 55% chance of prostate cancer. He returns today to discuss the elevation.Surveilla nce cystoscopy at his last visit was normal. Aleks Chicas Jr, MD [address] [place] [address], [address], [place], [address], [place] [facility] 08/26/2023 11:08:00
[2024-09-13 15:53] LABS: Hematocrit 43.2 % (42.0-52.0); Hemoglobin 14.6 g/dL (14.1-18.0); Immature Granulocytes % 0.3 %; Mean Corpuscular HGB Conc 33.8 g/dL (31.8-35.4); Mean Corpuscular Hemoglobin 32.4 pg (27.0-31.2); Mean Corpuscular Volume 96.0 fl (80-94); Nucleated Red Blood Cells % 0 %; Platelet Count 228 K/mm3 (142-424); Red Blood Count 4.50 M/mm3 (4.60-6.20); Red Cell Distribution Width-SD 47.0 fL; White Blood Count 9.5 K/mm3 (4.8-10.8)
[2024-09-13 16:21] LABS: Alanine Aminotransferase 29 U/L (12-78); Albumin Level 4.5 g/dl (3.5-5.0); Albumin/Globulin Ratio 1.7 (1.1-1.8); Alkaline Phosphatase 96 U/L (38-126); Anion Gap 14.0 mEq/L (5-15); Aspartate Amino Transferase 24 U/L (17-59); Bilirubin,Total 0.8 mg/dl (0.2-1.3); Blood Urea Nitrogen 9 mg/dl (9-20); Calcium 9.9 mg/dl (8.4-10.2); Carbon Dioxide 25 mmol/L (22.0-30.0); Chloride 102 mmol/L (98-107); Cholesterol 139 mg/dl (140-200); Creatinine,Serum 0.80 mg/dl (0.66-1.25); Estimated Glomerular Filt Rate 95 ml/min (>60); GFR (African American) 115 ML/MIN (>60); Globulin 2.7 g/dL (1.3-3.2); Glucose 94 mg/dl (74-100); HDL Cholesterol 56 mg/dl (40-60); Potassium 4.0 mmoL/L (3.5-5.1); Sodium 137 mmol/L (136-145); Total Protein,Serum 7.2 g/dl (6.3-8.2); Triglycerides 87 mg/dl (30-150)
[2024-09-14 03:38] LABS: PSA, Free 0.72 ng/mL
== END 2024-09-13 23:59 | disposition home or self-care (01) ==
LOC: LAB 14:58
PROVIDERS: PCP Internal Medicine Adolescent Medicine; Visit Provider Internal Medicine Adolescent Medicine
DX: R97.20 Elevated prostate specific antigen [PSA] (principal); J44.89 Other specified chronic obstructive pulmonary disease; E78.2 Mixed hyperlipidemia
CPT/HCPCS: 36415; 80053; 80061; 84153; 84154; 85025

== ENCOUNTER 2024-09-14 07:00 | Outpatient (CLI) | payer MEDICARE, SELFPAY ==
--- NOTE | 2024-09-14 07:03 | CT_ITS ---
FINAL REPORT TECHNIQUE: Axial CT images of the chest were obtained without contrast. Low-dose protocol was utilized. This study was performed with techniques to keep radiation doses as low as reasonably achievable (ALARA). Individualized dose reduction techniques using automated exposure control or adjustment of mA and/or kV according to the patient's size were employed. CLINICAL HISTORY: SCREENING Current smoker 1 ppd x 57 years COMPARISON: 10/08/2023 FINDINGS: CT CHEST WITHOUT, LOW DOSE SCREENING CT Di Vol: 2.90 mGy DLP: 112.29 mGy*cm No significant mediastinal mass or adenopathy. The heart size is normal. There is no pleural or pericardial effusion. There are advanced changes of centrilobular emphysema, particularly in the upper lobes. Calcified granulomas are noted at the right lung base. The lung windows show no suspicious mass or nodule. Limited images of the upper abdomen demonstrate no acute findings. IMPRESSION: LR Category 1S: 12 month follow-up low-dose chest CT is recommended per Fleischner criteria. Modifier S: Advanced changes of centrilobular emphysema. Reviewed, Interpreted and Dictated by Gumaro Villatoro MD Transcribed by Renata Gonsalves Authenticated and [facility]
== END 2024-09-14 23:59 | disposition home or self-care (01) ==
LOC: RAD 07:01
PROVIDERS: PCP Internal Medicine Adolescent Medicine; Visit Provider Internal Medicine Adolescent Medicine
DX: J43.2 Centrilobular emphysema (principal); Z12.2 Encounter for screening for malignant neoplasm of respiratory organs; Z87.891 Personal history of nicotine dependence
CPT/HCPCS: 71271